=== PATIENT | male | born 1950 | race Caucasian/White ===

== ENCOUNTER → 2017-02-01 | Outpatient (CLI) | payer OTHER ==
[~2017-02-01] MED LIST: BACL10TA PO; CYAN500T PO; DOCU100C31 PO; FENT25DI10 TD; GABA-113 PO; GUAI1TAB75 PO; HYDR1SOL10 PO; LEVO-459 PO; LORA-741 PO; MELA1TAB5 PO; MELA3TAB PO; MIRT30TA2 PO; MIRT30TA3 PO; MORP60TA69 PO; NUTR-977 PO; QUET1TAB30 PO; SENN-63 PO; SERT-234 PO; SERT50TA PO; ativan; oxycodone PO
--- NOTE | 2017-02-01 12:33 | DIAGNOSTIC IMAGING REPORT ---
ULTRASOUND OF THE CAROTID ARTERIES CLINICAL HISTORY: Head and neck cancer. History of radiation treatment. COMPARISON STUDY: CT scan of the neck dated 05/24/2016. TECHNIQUE: Real-time, grayscale, and color Doppler sonography of the carotid arteries is performed. Images are reviewed in the transverse and longitudinal planes. FINDINGS: Blood pressure in the right arm measures 139/74 and blood pressure in the left arm measures 122/75. The carotid arteries are patent bilaterally and demonstrate antegrade flow. There is mild echogenic shadowing atherosclerotic plaque seen bilaterally. Normal doppler arterial waveforms are seen throughout. Velocity measurements are listed below. Common carotid peak systolic velocity (cm/sec): RIGHT: 92 LEFT: 107 ICA proximal peak systolic velocity (cm/sec): RIGHT: 91 LEFT: 84 ICA mid peak systolic velocity (cm/sec): RIGHT: 74 LEFT: 63 ICA distal peak systolic velocity (cm/sec): RIGHT: 67 LEFT: 56 ICA/CC peak systolic ratio: RIGHT: 0.9 LEFT: 0.8 Antegrade flow was shown in the vertebral arteries. The external carotid arteries are patent. IMPRESSION: 1. There is no sonographic evidence of hemodynamically significant stenosis in the right or left carotid arterial system. 2. Antegrade flow is shown in the vertebral arteries. Electronically signed by: Felix Shane M.D. 02/01/2017 12:31 PM Dictated Date/Time: 02/01/2017 12:30 PM
== END | disposition home or self-care (01) ==
LOC: C.ULTR 11:27
PROVIDERS: ATTEND Physician Assistant Medical
DX: C32.0 Malignant neoplasm of glottis (principal); C01 Malignant neoplasm of base of tongue

== ENCOUNTER 2017-02-07 16:37 | Observation (INO) | payer OTHER ==
[~2017-02-07] VITALS: Ht 167.6 cm; Wt 67.1 kg
[~2017-02-07 16:37] MED LIST changes: -FENT25DI10 TD; -HYDR1SOL10 PO; -LEVO-459 PO; -LORA-741 PO; -MELA3TAB PO; -MIRT30TA3 PO; -ativan
[2017-02-07] MEDS ORDERED: ONDANSETRON 8 MG/54 ML D5W IV STA (17:03)
[2017-02-07 17:15] LABS: BASO % 0.5 %; BASO ABS # 0.03 K/uL (0-0.2); COMPLETE YES; EOS % 1.8 %; HEMATOCRIT 42.6 % (42-52); LYMPH % 19.6 %; LYMPH ABS # 1.09 K/uL (1.2-3.4); MEAN CELL VOLUME 85.4 fL (80-100); MEAN CORPUSCULAR HEMOGLOBIN 29.5 pg (25-34); MEAN CORPUSCULAR HGB CONC 34.5 g/dl (32-36); MEAN PLATELET VOLUME 9.1 fL (7.4-10.4); MONO % 7.7 %; NEUT % 70.4 %; PLATELET COUNT 252 K/uL (130-400); RED BLOOD COUNT 4.99 M/uL (4.7-6.1); WHITE BLOOD COUNT 5.57 K/uL (4.8-10.8)
[2017-02-07] MEDS ORDERED: MoRPHine SULFATE 4 MG/ML 1 ML CARP\\VIAL ONE ×2 (17:15→20:10)
[2017-02-07] MEDS: MoRPHine SULFATE 10 MG/ML CARP/VIAL IV PRN ×2 (17:30→20:13)
[2017-02-07 17:33] LABS: ALT/SGPT 19 U/L (12-78); AST/SGOT 19 U/L (15-37); BLOOD UREA NITROGEN 11 mg/dl (7-18); BUN/CREATININE RATIO 9.2 (10-20); CALCIUM 9.5 mg/dl (8.5-10.1); CARBON DIOXIDE 23 mmol/L (21-32); CHLORIDE 108 mmol/L (98-107); GLUCOSE 98 mg/dl (70-99); POTASSIUM 3.9 mmol/L (3.5-5.1); SODIUM 141 mmol/L (136-145)
[2017-02-07 17:35] LABS: ALKALINE PHOSPHATASE 134 U/L (45-117)
[2017-02-07] MEDS ORDERED: MELA3TAB PO (17:44)
[2017-02-07] MEDS ORDERED: MIRT30TA3 PO (17:44)
[2017-02-07] MEDS ORDERED: OPTIRAY 320 IV PRN (21:00)
[2017-02-07] MEDS ORDERED: LORAZEPAM 2 MG/ML 1 ML VIAL IV STA (21:11)
[2017-02-07] MEDS ORDERED: NURSING VERBAL MED ORDER ONE (21:15)
[2017-02-07] MEDS ORDERED: ONDANSETRON INJ 2 MG/ML 2 ML VIAL ONE (21:16)
--- NOTE | 2017-02-07 21:59 | DIAGNOSTIC IMAGING REPORT ---
CT OF THE NECK WITH CONTRAST CT DOSE: 428.15 mGy.cm CLINICAL HISTORY: Dyspnea. Difficulty swallow. TECHNIQUE: Axial images of the neck were obtained following intravenous injection of 115 cc of Optiray 320 IV. COMPARISON STUDY: Neck CT May 24, 2016 and PET/CT December 13, 2016. FINDINGS: Visualization portions of the intracranial contents are unremarkable. There are post surgical findings within the sinuses. There is mild mucosal thickening of the sinuses. There is no CT evidence of acute sinusitis. There is no fluid within the mastoid air cells. No suspicious osseous lesions are present. Moderate to severe emphysema is noted within visualized portions of the lungs. No pneumothorax is present within the lung apices. There are findings consistent with a tracheostomy. Minimal debris is noted within visualized portions of the trachea. A tracheoesophageal prosthesis is in place. This is unchanged in position. There are findings consistent with a laryngectomy. The postoperative appearance is similar to PET/CT of December 13, 2016. No pathologically enlarged cervical lymph nodes are identified. Note is again made of prominent irregular enhancing soft tissue at the level the base of the tongue/lingual tonsils. The tissue within the right aspect of the lingual tonsils measures 1.3 x 0.7 cm while of the irregular tissue at the left tonsils measures 1.2 [address], it is difficult to differentiate tonsillar tissue from malignancy. This is similar to PET/CT of December 13, 2016. No additional mucosal abnormalities are identified on the study. IMPRESSION: 1. Status post laryngectomy and tracheostomy with suspected tracheoesophageal prosthesis in place. Stable postoperative findings since PET/CT of December 13, 2016. 2. Irregular enhancing tissue at the base of the tongue/lingual tonsils, similar to PET/CT of December 13, 2016. This may reflect the biopsy-proven carcinoma but differentiation between tonsillar tissue and malignancy is difficult by CT. 3. No cervical lymphadenopathy. Electronically signed by: Milan Kelly M.D. 02/07/2017 9:58 PM Dictated Date/Time: 02/07/2017 9:39 PM
[2017-02-07] MEDS ORDERED: ONDANSETRON INJ 2 MG/ML 2 ML VIAL IV STA (22:04)
[2017-02-07] MEDS ORDERED: SODIUM CHLORIDE 0.9% 1000ML 1,000 ML IV STA (23:16)
[2017-02-08] VITALS (7 sets, daily range): BP systolic 132–156; BP diastolic 70–82; PULSE 66–90; TEMP 36.5–36.9; O2SAT 93–98; Ht 167.6 cm; Wt 67.1 kg
[2017-02-08] MEDS ORDERED: KETOROLAC TROMETHAMINE 30 MG/ML VIAL IV PRN
[2017-02-08] MEDS ORDERED: LORAZEPAM 2 MG/ML 1 ML VIAL IV PRN
[2017-02-08] MEDS ORDERED: MoRPHine SULFATE 2 MG/ML CARP IV PRN
[2017-02-08] MEDS ORDERED: MoRPHine SULFATE 4 MG/ML 1 ML CARP\\VIAL IV PRN
[2017-02-08] MEDS ORDERED: ACETAMINOPHEN IV 100 ML IV PRN
[2017-02-08] MEDS ORDERED: DiphenhydrAMINE HCL 50 MG/ML VIAL IV PRN (00:15)
[2017-02-08] MEDS ORDERED: IV FLUIDS COMPLETED PRN (00:30)
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
[2017-02-08] MEDS: NSS + 20MEQ KCL 1000ML 1,000 ML IV SCH ×3 (01:29→20:38)
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
[2017-02-08] MEDS ORDERED: NURSING VERBAL MED ORDER ONE (04:30)
[2017-02-08] MEDS: HYDROmorphone INJ 0.5 MG/0.5 ML SYR IV PRN ×5 (04:34→17:56)
[2017-02-08] MEDS ORDERED: ONDANSETRON INJ 2 MG/ML 2 ML VIAL IV PRN (10:15)
[2017-02-08] MEDS: PANTOprazole INJ 40 MG in SYRINGE 0 ML IV SCH (10:30)
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
[2017-02-08] MEDS: LEVOFLOXACIN / D5W 500 MG in PREMIXED IN D5W 100 ML IV SCH (12:37)
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
[2017-02-08] MEDS: BOOST PLUS VANILLA PO SCH ×2 (15:54)
[2017-02-08] MEDS ORDERED: HYDROmorphone INJ 1 MG/ML SYR IV PRN (18:30)
[2017-02-08] MEDS: LORAZEPAM INJ 0.5 MG in SYRINGE 0.75 ML IV PRN (20:37)
[2017-02-08] MEDS: MoRPHine SULFATE CR 60 MG TAB (MS CONTIN) PO SCH (22:35)
[2017-02-08] MEDS: OXYCODONE HCL IR 5 MG TAB (IMMEDIATE RELEASE) PO PRN (23:43)
[2017-02-09 00:18] VITALS: BP 164/76; PULSE 61; TEMP 36.8; O2SAT 96
[2017-02-09 03:59] VITALS: BP 142/78; PULSE 62; TEMP 36.8; O2SAT 97
[2017-02-09] MEDS: OXYCODONE HCL IR 5 MG TAB (IMMEDIATE RELEASE) PO PRN ×3 (04:30→15:10)
[2017-02-09] MEDS: LORAZEPAM INJ 0.5 MG in SYRINGE 0.75 ML IV PRN (04:41)
[2017-02-09] MEDS: NSS + 20MEQ KCL 1000ML 1,000 ML IV SCH (06:13)
[2017-02-09] MEDS: MoRPHine SULFATE CR 60 MG TAB (MS CONTIN) PO SCH ×2 (06:13→13:56)
[2017-02-09 07:52] VITALS: BP 138/69; PULSE 68; TEMP 36.6; O2SAT 96
[2017-02-09] MEDS ORDERED: DOCUSATE SODIUM 100 MG CAP PO SCH (08:00)
[2017-02-09] MEDS ORDERED: SERTRALINE HCL 100 MG TAB PO SCH (08:00)
[2017-02-09] MEDS ORDERED: SERTRALINE HCL 50 MG TAB PO SCH (08:00)
[2017-02-09] MEDS: BOOST PLUS VANILLA PO SCH ×2 (08:00)
[2017-02-09] MEDS ORDERED: SENNA 8.6 MG TAB PO SCH (08:00)
[2017-02-09] MEDS ORDERED: BOOST PLUS VANILLA PO SCH ×2 (08:00)
[2017-02-09] MEDS ORDERED: CYANOCOBALAMIN 500 MCG TAB (VIT B-12) PO SCH (08:00)
[2017-02-09] MEDS ORDERED: MIDAZOLAM HCL 1 MG/ML 2ML VIAL IV ONE (08:33)
[2017-02-09] MEDS ORDERED: FENTANYL CITRATE INJ 50 MCG/1 ML 2 ML VIAL IV ONE (08:33)
[2017-02-09] MEDS ORDERED: ATROPINE SULFATE 0.1 MG/ML 5ML SYR IV PRN (09:30)
[2017-02-09] MEDS ORDERED: EpHEDrine SULFATE INJ 50 MG/ML AMP IV PRN (09:30)
--- NOTE | 2017-02-09 10:05 | Anesthesiology Progress Note ---
Anesthesia Post Op Note Date & Time February 09, 2017 at 10:05 Vital Signs Pain Intensity: 4 Vital Signs Past 12 Hours Date Time Temp Pulse Resp B/P Pulse Ox O2 Delivery O2 Flow Rate FiO2 02/09/17 09:55 69 17 134/80 94 Room Air 02/09/17 09:46 36.3 82 10 143/80 97 Room Air 02/09/17 07:52 36.6 68 18 138/69 96 02/09/17 03:59 36.8 62 20 142/78 97 Trach Collar 02/09/17 00:18 36.8 61 20 164/76 96 Trach Collar 02/09/17 00:00 Trach Collar 7.0 Notes Mental Status: alert / awake / arousable, participated in evaluation Pt Amnestic to Procedure: Yes Nausea / Vomiting: adequately controlled Pain: adequately controlled Airway Patency, RR, SpO2: stable & adequate BP & HR: stable & adequate Hydration State: stable & adequate Anesthetic Complications: no major complications apparent
[2017-02-09 10:15] VITALS: BP 144/78; PULSE 66; TEMP 37; O2SAT 93
[2017-02-09] MEDS: BACLOFEN 10 MG TAB PO SCH ×2 (10:36→15:07)
[2017-02-09] MEDS: GABAPENTIN 300 MG CAP PO SCH ×2 (10:36→15:08)
[2017-02-09] MEDS: LEVOFLOXACIN / D5W 500 MG in PREMIXED IN D5W 100 ML IV SCH (10:39)
[2017-02-09] MEDS: PANTOprazole INJ 40 MG in SYRINGE 0 ML IV SCH (10:40)
[2017-02-09 11:13] VITALS: BP 112/63; PULSE 76; TEMP 36.7; O2SAT 95
[2017-02-09] MEDS ORDERED: LEVO-459 PO (11:36)
--- NOTE | 2017-02-09 11:38 | Discharge Instructions ---
Discharge Instructions Date of Service February 09, 2017. Admission Reason for Admission: Cancer Of Base Of Tongue, Dehydration Discharge Discharge Diagnosis / Problem: Bronchitis Discharge Goals Goal(s): Decrease discomfort, Improve function, Diagnostic testing, Therapeutic intervention, Prevent Disease Progression Activity Recommendations Activity Limitations: resume your previous activity . Instructions / Follow-Up Instructions / Follow-Up New medications: 1. Levaquin 500 mg by mouth once daily until prescription is complete- begin this medication on 02/10 This is an antibiotic used to treat bronchitis (your discolored sputum) Resume all other regular home medications as prescribed to you Please follow-up with your PCP within 5-7 days Please follow-up/keep all of your subspecialty appointments Current Hospital Diet Patient's current hospital diet: Full Liquid Diet Discharge Diet Recommended Diet: Full Liquid Diet Pending Studies Studies pending at discharge: no Laboratory Results Test 02/07/17 17:02 02/08/17 05:44 Range/Units White Blood Count 5.57 4.8-10.8 K/uL Red Blood Count 4.99 4.7-6.1 M/uL Hemoglobin 14.7 14.0-18.0 g/dL Hematocrit 42.6 42-52 % Mean Corpuscular Volume 85.4 80-100 fL Mean Corpuscular Hemoglobin 29.5 25-34 pg Mean Corpuscular Hemoglobin Concent 34.5 32-36 g/dl Platelet Count 252 130-400 K/uL Mean Platelet Volume 9.1 7.4-10.4 fL Neutrophils (%) (Auto) 70.4 % Lymphocytes (%) (Auto) 19.6 % Monocytes (%) (Auto) 7.7 % Eosinophils (%) (Auto) 1.8 % Basophils (%) (Auto) 0.5 % Neutrophils # (Auto) 3.92 1.4-6.5 K/uL Lymphocytes # (Auto) 1.09 1.2-3.4 K/uL Monocytes # (Auto) 0.43 0.11-0.59 K/uL Eosinophils # (Auto) 0.10 0-0.5 K/uL Basophils # (Auto) 0.03 0-0.2 K/uL RDW Standard Deviation 43.0 36.4-46.3 fL RDW Coefficient of Variation 13.8 11.5-14.5 % Immature Granulocyte % (Auto) 0.0 % Immature Granulocyte # (Auto) 0.00 0.00-0.02 K/uL Sodium Level 141 136-145 mmol/L Potassium Level 3.9 3.5-5.1 mmol/L Chloride Level 108 98-107 mmol/L Carbon Dioxide Level 23 21-32 mmol/L Anion Gap 10.0 3-11 mmol/L Blood Urea Nitrogen 11 7-18 mg/dl Creatinine 1.20 0.60-1.40 mg/dl Estimated GFR () 73.6 Estimated GFR (Non- 63.5 BUN/Creatinine Ratio 9.2 10-20 Random Glucose 98 70-99 mg/dl Calcium Level 9.5 8.5-10.1 mg/dl Total Bilirubin 0.6 0.2-1 mg/dl Direct Bilirubin 0.1 0-0.2 mg/dl Aspartate Amino Transf (AST/SGOT) 19 15-37 U/L Alanine Aminotransferase (ALT/SGPT) 19 12-78 U/L Alkaline Phosphatase 134 45-117 U/L Total Protein 8.0 6.4-8.2 gm/dl Albumin 3.9 3.4-5.0 gm/dl Lipase 216 73-393 U/L Hepatitis C Antibody Screen NEG NEG Medical Emergencies . Who to Call and When: Medical Emergencies: If at any time you feel your situation is an emergency, please call 911 immediately. . Non-Emergent Contact Non-Emergency issues call your: Primary Care Provider . . "Provider Documentation" section prepared by Shelley Parry. . VTE Core Measure Inpt VTE Proph given/why not?: SCD's
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
--- NOTE | 2017-02-09 12:07 | DIAGNOSTIC IMAGING REPORT ---
MRI SOFT TISSUES NECK COMBO CLINICAL HISTORY: Fever. Base of tongue cancer. Difficulty swallowing. COMPARISON STUDY: CT scan of the neck dated 02/07/2017. TECHNIQUE: MRI of the soft tissues of the neck is performed utilizing various T1 and T2-weighted sequences in the axial, sagittal, and coronal planes. Contrast-enhanced sequences were acquired following the IV administration of 7 cc of Gadavist. The examination is modestly degraded by motion artifact. FINDINGS: Again seen are changes from laryngectomy and tracheostomy. There is ill-defined soft tissue/nodularity seen at the base of the tongue/lingual tonsils. This is unchanged from previous and likely represents the patient's biopsy-proven carcinoma. This is not well delineated secondary to surrounding posttreatment change. This is best seen on axial postcontrast image #16 of 22. Nodular foci measure up to 1.4 cm. There is nonspecific infiltration of the right parapharyngeal fat. No cervical lymphadenopathy is identified. There is no evidence of fluid collection in the neck. The salivary glands are normal as visualized. The right and left thyroid lobes are normal as visualized. The isthmus appears to be absent. The visualized bony structures appear intact. No destructive bony lesion is seen. Posterior disc osteophyte complexes at C3-C4 at C5-C6 contribute to acquired compromise of the central spinal canal. The partially imaged brain parenchyma at the skull base is within normal limits. Normal flow voids are maintained in the carotid and vertebral arteries. IMPRESSION: 1. Extensive postoperative changes from laryngectomy and tracheostomy are again seen. 2. Nodular enhancing soft tissue is again suggested at the base of the tongue/laryngeal tonsils. This likely represents the patient's biopsy-proven carcinoma. 3. No cervical adenopathy is identified. 4. No organized fluid collection is identified. 5. Infiltration of the right parapharyngeal fat is again noted and likely represents treatment related change. 6. These findings were better characterized on the 02/07/2017 CT scan. Dictated: 02/09/2017 10:14 AM Transcribed: 02/09/2017 12:07 PM Lazaro Electronically signed by: Felix Shane M.D. 02/09/2017 12:12 PM Dictated Date/Time: 02/09/2017 10:14 AM
[2017-02-09 14:58] VITALS: BP 112/63; PULSE 76; TEMP 36.7; O2SAT 95
[2017-02-09] MEDS ORDERED: GUAIFENESIN 600 MG TABCR PO SCH (21:00)
[2017-02-09] MEDS ORDERED: MIRTAZAPINE TAB 15 MG TAB PO SCH (21:00)
[2017-02-09] MEDS ORDERED: NON-FORMULARY MEDICATION (Melatonin 3 MG) PO SCH (21:00)
[2017-02-09] MEDS ORDERED: QUETIAPINE FUMARATE 25 MG TAB PO SCH (21:00)
[2017-02-10] MEDS ORDERED: LEVOFLOXACIN 500 MG TAB PO SCH (11:00)
[2017-03-07] MEDS ORDERED: ativan (15:52)
[2017-03-24] MEDS ORDERED: HYDR1SOL10 PO (14:14)
[2017-03-24] MEDS ORDERED: FENT25DI10 TD (14:14)
[2017-03-24] MEDS ORDERED: LORA-741 PO (14:16)
== END 2017-02-09 15:30 | disposition home or self-care (01) ==
LOC: ENRESERVTM → ENRESERVDT → C.EDB 16:38 → C.4E 02-08 00:01
PROVIDERS: ADMIT Hospitalist; ATTEND Internal Medicine
DX: R13.10 Dysphagia, unspecified (principal); Z85.810 Personal history of malignant neoplasm of tongue; E86.0 Dehydration; Z93.0 Tracheostomy status; Z87.891 Personal history of nicotine dependence; J44.9 Chronic obstructive pulmonary disease, unspecified; F41.9 Anxiety disorder, unspecified; F32.9 Major depressive disorder, single episode, unspecified; J40 Bronchitis, not specified as acute or chronic

== ENCOUNTER 2017-02-22 10:12 | Emergency (ER) | payer OTHER ==
[~2017-02-22] VITALS: Ht 167.6 cm; Wt 70.4 kg
[~2017-02-22 10:12] MED LIST changes: +LEVO-459 PO; -MELA1TAB5 PO; +MELA3TAB PO; -MIRT30TA2 PO; +MIRT30TA3 PO
[2017-02-22 10:16] VITALS: TEMP 36.7
--- NOTE | 2017-02-22 11:36 | EMERGENCY ROOM VISIT NOTE ---
History Report prepared by Gerald: Miriam Castillo Under the Supervision of: Dr. Aliyah Briseno M.D. First contact with patient: 11:31 Chief Complaint: FEEDING TUBE PROBLEM Stated Complaint: FEEDING TUBE FELL OUT History of Present Illness The patient is a 66 year old male who presents to the Emergency Room with complaints of constant complications of feeding tube beginning at 8am this morning. Per the patient's , the patient went to the bathroom this morning and his peg tube fell out. Site of the peg tube is the epigastric region of abdomen. The tube was unable to be put back in due to being too painful for the patient to tolerate. The peg tube was put in at [facility] last week. The patient notes that he can still eat solids. He denies any other symptoms at this time. Source of History: spouse/significant other Onset: 8am today Position: abdomen (epigastric) Quality: other (feeding tube) Timing: constant Note: The patient has no other symptoms at this time. Review of Systems See HPI for pertinent positives & negatives. A total of 10 systems reviewed and were otherwise negative. Past Medical & Surgical Medical Problems: (1) Alcohol Abuse-In Remiss (2) Dehydration (3) Depressive Disorder Nec (4) Tobacco Use Disorder Surgical Problems: (1) History of tracheostomy Family History No significant family history Social History Smoking Status: Former Smoker Alcohol Use: none Drug Use: none Marital Status: Housing Status: lives with significant other Occupation Status: retired Current/Historical Medications Scheduled Baclofen (Lioresal), 10 MG PO TID Cyanocobalamin (Vitamin B-12), 500 MCG PO DAILY Docusate Sodium (Docusate Sodium), 100 MG PO BID Enteral Nutrition Formula (Ensure Plus Vanilla), 1 CAN PO BID Gabapentin (Neurontin), 300 MG PO TID Melatonin (Melatonin), 3 MG PO HS Mirtazapine (Remeron), 45 MG PO HS Morphine Sulfate (Ms Contin), 60 MG PO Q8 Quetiapine Fumarate (Seroquel), 75 MG PO HS Sennosides (Senokot), 8.6 MG PO DAILY Sertraline (Zoloft), 50 MG PO DAILY Sertraline (Zoloft), 100 MG PO DAILY Scheduled PRN [oxycodone], 22.5 MG PO Q4H PRN for Pain Allergies Coded Allergies: Flu Virus Vaccine (Verified Allergy, Unknown, 0, 02/22/17) unknown Physical Exam Vital Signs Date Time Temp Pulse Resp B/P Pulse Ox O2 Delivery O2 Flow Rate FiO2 02/22/17 18:59 70 18 120/55 96 Room Air 02/22/17 18:12 64 127/64 89 02/22/17 17:57 68 13 95 02/22/17 17:45 64 02/22/17 17:42 83 15 84 02/22/17 17:27 75 15 02/22/17 16:58 98 2.0 02/22/17 16:55 69 18 147/71 88 Room Air 02/22/17 16:55 147/71 02/22/17 16:31 68 16 141/80 91 Room Air 02/22/17 14:00 76 18 105/53 97 02/22/17 12:33 89 18 109/63 94 Room Air 02/22/17 10:16 36.7 67 20 116/71 91 Room Air Physical Exam Vital signs reviewed. General: Chronically ill appearing male, in no significant distress. HEENT: No scleral icterus, PERRLA, neck supple. Atraumatic. Tracheostomy. Cardiovascular: Regular rate and rhythm, no extra sounds. Pulmonary: Clear to auscultation bilaterally, normal work of breathing. Abdomen: Well healing incision to epigastric region with small wound consistent with peg tube site, unable to pass the peg tube. Abdomen mildly tender. No acute peritoneal signs. Musculoskeletal: Atraumatic, no peripheral edema. Neurologic: Patient awake alert and oriented x 3, full strength in all 4 extremities. Cranial nerves 2 through 12 grossly intact. Skin: Warm, dry, no rash Medical Decision & Procedures Medications Administered Medications (Trade) Dose Ordered Sig/Joaquim Route Start Time Stop Time Status Last Admin Dose Admin Morphine Sulfate (Ms Contin Tab) 60 mg NOW STAT PO 02/22/17 12:15 02/22/17 12:17 DC 02/22/17 13:01 60 MG Oxycodone HCl (Roxicodone Immediate Rel Tab) 20 mg NOW STAT PO 02/22/17 12:55 02/22/17 12:56 DC 02/22/17 13:05 20 MG Oxycodone HCl (Roxicodone Immediate Rel Tab) 10 mg NOW STAT PO 02/22/17 17:14 02/22/17 17:15 DC 02/22/17 17:19 10 MG ED Course 1132: Past medical records reviewed. The patient was evaluated in room C3. A complete history and physical examination was performed. 1158: I spoke with DOROTA Cabezas [facility] General Surgery about the patient. She would like the patient to be transferred to [facility]. 1215: The patient is requesting pain medication. Ordered Ms Contin Tab 60 mg PO. 1255: Roxicodone Immediate Rel Tab 20 mg PO. 1442: The patient is being transferred to [facility] via EMS at this time. Medical Decision The patient is a 66 year old male who presents to the ED with complaints of feeding tube out of place. This patient was evaluated and appeared to be in no significant distress. The patient is mildly tender to palpation of the abdomen however he is recovering from laparotomy. An attempt to replace the feeding tube was made but unsuccessful. I did contact the patient's general surgeon at the [facility] in [place]. They have suggested transport to their facility for potential interventional radiology versus endoscopic replacement of the PEG tube. Transportation arrangements have been made. Patient was given a dose of oral MS Contin and OxyIR per his usual pain medication regimen. Patient will return to the ER for worsening of symptoms or any medical concerns. Consults Time Called: 1156 Consulting Physician: DOROTA Cabezas [facility] General Surgery Returned Call: 1158 I spoke with DOROTA Cabezas [facility] General Surgery about the patient. She would like the patient to be transferred to [facility]. Impression Primary Impression: Complication of feeding tube Scribe Attestation The scribe's documentation has been prepared under my direction and personally reviewed by me in its entirety. I confirm that the note above accurately reflects all work, treatment, procedures, and medical decision making performed by me. Departure Information Dispostion Transfer Acute Care Facility Referrals No Doctor, Assigned (PCP)
[2017-02-22] MEDS ORDERED: MoRPHine SULFATE CR 60 MG TAB (MS CONTIN) PO STA (12:15)
[2017-02-22] MEDS ORDERED: OXYCODONE HCL IR 5 MG TAB (IMMEDIATE RELEASE) PO STA ×2 (12:55→17:14)
[2017-02-22 13:58] VITALS: Ht 167.6 cm; Wt 70.4 kg
[2017-02-22 18:59] VITALS: BP 120/55; PULSE 70; O2SAT 96
--- NOTE | 2017-02-22 22:21 | EMERGENCY ROOM VISIT NOTE ---
ED Visit Note This patient was signed out to me by Dr. Briseno. We were waiting to transport this patient back to [place] for his provider there. He did require additional by mouth pain medication for his chronic pain he's remained cooperative. He did go by wheelchair van and will be seen by his surgeon for feeding tube replacement.
[2017-03-07] MEDS ORDERED: ativan (15:52)
[2017-03-24] MEDS ORDERED: FENT25DI10 TD (14:14)
[2017-03-24] MEDS ORDERED: HYDR1SOL10 PO (14:14)
[2017-03-24] MEDS ORDERED: LORA-741 PO (14:16)
== END 2017-02-22 19:49 | disposition short-term general hospital (02) ==
LOC: C.EDB 10:14 → C.EDC 19:49
DX: K94.20 Gastrostomy complication, unspecified (principal); F32.9 Major depressive disorder, single episode, unspecified; F17.200 Nicotine dependence, unspecified, uncomplicated; Z93.0 Tracheostomy status; Z87.891 Personal history of nicotine dependence; Z79.899 Other long term (current) drug therapy; Z88.8 Allergy status to other drugs, medicaments and biological substances

== ENCOUNTER → 2017-05-18 | Outpatient (CLI) | payer OTHER ==
[~2017-05-18] MED LIST changes: +FENT25DI10 TD; -GUAI1TAB75 PO; +HYDR1SOL10 PO; -LEVO-459 PO; +LORA-741 PO; -SERT50TA PO
[2017-05-18 14:55] VITALS: BP 91/65; PULSE 72; TEMP 36.7; O2SAT 90
--- NOTE | 2017-05-18 15:48 | Radiation Oncology Follow-Up ---
Radiation Oncology Follow-Up Date of Visit May 18, 2017. 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 He received 6996 cGy Last Edited By: Fiorella Chau on Apr 27, 2017 11:05 History of Present Illness Mr. 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 The patient was seen and examined in the head and neck clinic in the [facility] and the final recommendation was for radiation therapy alone. We are now seeing the patient in consultation discuss the role of radiation therapy. Today, I did have the opportunity to review the patient's case at our multidisciplinary tumor board. The final recommendation from the group which included both radiation oncology and medical oncology was to reconsider the general recommendation of radiation therapy alone. In order to better assess the extent of disease, I will order an MRI of the neck. Additionally, the patient will see Dr. Valentin Lee for medical oncology to discuss the potential role of chemotherapy. In general, we did review the NCCN guidelines for the management of head and neck cancer. I did explain to the patient that if the MRI of the neck supports that he does have early stage oropharyngeal cancer (as well as opinion of medical oncology), then we can proceed with radiation therapy alone. If there is concern that the patient may have more locally advanced disease, then I will recommend consideration for both chemotherapy and radiation therapy for treatment. The patient is willing to be considered for both treatment options based on recommendations from both radiation oncology and medical oncology. In the interim, the patient will be brought back for CT simulation for treatment planning since he will require that either way. We have already made him an appointment for a medical oncology referral and we are in the process of scheduling him for an MRI of the neck. The patient is edentulous so he does not require dental evaluation. We will order a TSH and bilateral carotid Doppler ultrasounds. The patient is already scheduled to have a PEG placed by [facility]. We have explained the indications, alternatives, benefits, risks and side effects of radiation therapy for head/neck cancer. We have explained the most common side effects including but are not limited to skin erythema, skin break down, hair loss, fibrosis, adhesion development, heart failure and heart disease , esophagitis, bowel obstruction, urinary symptoms, thyroid disorders, mucositis , nauesea, vomiting, diarrhea, anemia, fatigue and development of secondary malignancy. Additionally, patients suffer may have xerostomia, stomatitis, glossitis, dysphagia, aspiration, mandibular osteoradionecrosis, mucocutaneous fistula formation, lymphedema in the neck, pharyngeal edema, mucositis, loss of taste. We have explained the CT simulation process and treatment planning. We explained what to expect before, during and after treatment on a regular basis. The patient understands and would be willing to consent to treatment. He completed radiation therapy 04/18/2017. He received 6996 cGy. Interim History He's been doing well of this past month. The discomfort that he feels in the throat and with swallowing has improved. He does continue to give this a pain level of 5. Pain medications are supplied through the [facility]. He has oxycodone and morphine. He is steadily increasing his diet. He is eating some soft foods. Especially is eating soups, Jell-O and pudding. He is using 3 cartons of nutrition per day. This is supplied through the [facility]. He also uses 3 bottles of in sure per day via the feeding tube. He'll be seeing his ENT surgeon at the end of the month at the [facility]. He is steadily gaining weight. He had a weight gain of 2 pounds. Allergies Coded Allergies: Flu Virus Vaccine (Verified Allergy, Unknown, 0, 02/22/17) unknown Home Medications Scheduled Baclofen (Lioresal), 10 MG PO TID Cyanocobalamin (Vitamin B-12), 500 MCG PO DAILY Docusate Sodium (Docusate Sodium), 100 MG PO BID Enteral Nutrition Formula (Ensure Plus Vanilla), 1 CAN PO TIDM Gabapentin (Neurontin), 300 MG PO TID Melatonin (Melatonin), 3 MG PO HS Mirtazapine (Remeron), 45 MG PO HS Morphine Sulfate (Ms Contin), 100 MG PO Q8 Quetiapine Fumarate (Seroquel), 75 MG PO HS Sennosides (Senokot), 8.6 MG PO DAILY Sertraline (Zoloft), 200 MG PO DAILY Scheduled PRN Hydrocodone-Acetaminophen (Hydrocodone/Acetami 7.5/325MG 15ML), 15 ML PO Q6H PRN [oxycodone], 22.5 MG PO Q4H PRN for Pain Review of Systems Gastrointestinal: Symptoms: Nausea GI Comments: " altered taste " Oral: Symptoms: Can Only Take Liquids, Thick/Viscid/Mucid Saliva Other Oral Symptoms: sore throat , " is able to swallow his pills " Respiratory: Symptoms: WNL Other Respiratory: has a trach Urinary: Symptoms: Burning, Nocturia Comments: burning on urination , nocturia times 1 - 2 Skin: Symptoms: No Problems Physical Exam Vital Signs Date Time Temp Pulse Resp B/P (MAP) Pulse Ox O2 Delivery O2 Flow Rate FiO2 05/18/17 14:55 36.7 72 16 91/65 90 Pain: Pain Onset: "since the start of radiation " Pain Duration: constant Side: Bilateral Patient Pain Scale: 0 - 10 Initial Pain Intensity: 5.0 Pain Description: Aching Fatigue: None General Appearance: no apparent distress Eyes: normal inspection, EOMI ENT: hearing grossly normal, pharynx normal (no mucositis), + pertinent finding (clean open stoma of the neck.) Neck: no adenopathy, thyroid normal Respiratory/Chest: lungs clear, no respiratory distress, no accessory muscle use Cardiovascular: regular rate, rhythm, no gallop, no murmur Extremities: no pedal edema Neurologic/Psychiatric: no motor/sensory deficits, alert, normal mood/affect Skin: warm/dry Lymphatic: no adenopathy Laboratory Studies Test 04/10/17 04:45 Urine Color YELLOW Urine Appearance CLEAR (CLEAR) Urine pH 7.0 (4.5-7.5) Urine Specific [place] 1.025 (1.000-1.030) Urine Protein NEG (NEG) Urine Glucose (UA) NEG (NEG) Urine Ketones NEG (NEG) Urine Occult Blood NEG (NEG) Urine Nitrite NEG (NEG) Urine Bilirubin NEG (NEG) Urine Urobilinogen NEG (NEG) Urine Leukocyte Esterase NEG (NEG) Assessment & Plan Plan: Patient was also seen and examined by Dr. Cortez. He declined NPL examination today. He was in a hurry to greens picker his who is at another appointment. [facility]. Continue on his current regimen of nutrition. He should try to steadily increase his oral intake. We asked him to return to our office in 3 months. He may call if he has the questions or concerns in the interim. Today we completed a cancer survivorship care plan. A copy of the document was given to the patient. ADDENDUM: I agree with note created by Fiorella Chau PA-C. I reviewed the patient's chart and information with her. Total Time In Follow-Up I spent 20 minutes speaking to the patient and performing examination. I spent 20 minutes reviewing information, preparing the survivorship document, and completing this note. I spent 15 minutes examining and counseling the patient. [employer]AND [employer]NER Copy To Willa Richardson M.D.; Merna Candelario ., WENDY
== END | disposition home or self-care (01) ==
LOC: C.ONC 14:33
PROVIDERS: ATTEND Physician Assistant Medical
DX: Z08 Encounter for follow-up examination after completed treatment for malignant neoplasm (principal); Z92.3 Personal history of irradiation; Z85.810 Personal history of malignant neoplasm of tongue

== ENCOUNTER 2021-03-17 15:41 | Inpatient (IN) ==
--- NOTE | 2021-03-17 16:37 | Emergency Department Note ---
History of Present Illness General Chief complaint: Throat Pain Stated complaint: CANNOT SWALLOW,WEIGHT LOSS Time Seen by Provider: 03/17/21 16:19 Source: family Mode of arrival: ambulatory Limitations: physical limitation History of Present Illness Provider complaint: "he needs a G tube" Onset (ago): month(s) 2 Maximum Pain Intensity: 5 Relieved By: + none Exacerbated By: + none Associated symptoms: + denies other symptoms Treatments prior to arrival: none This is a 70-year-old male who presents emergency department [facility]. Patient was recently diagnosed with recurrent laryngeal cancer through the [facility] [place]. He has had decreased oral intake and increased dysphagia over the last 2 months. Patient states he has difficulty swallowing primarily from pain. Patient already has a tracheostomy and does wear oxygen at home. They did try a mechanical soft and then liquid diet which she still has difficulty with. Rl merritt has previously had a G-tube that was placed here. On review of EMR this was placed by GI, Dr. Tricia Lee. 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 Patient had no other acute complaints at this time. Pt is on multiple chronic medications including those for pain. Pt seen during a time of high acuity and national emergency pandemic while wearing PPE. Home Medications Medication Instructions Recorded Confirmed Type baclofen 5 mg PO TID PRN 06/17/19 03/17/21 History cyanocobalamin (vitamin B-12) 500 mcg PO QAM 06/17/19 03/17/21 History docusate sodium 100 mg PO BID 06/17/19 03/17/21 History gabapentin 300 mg PO TID 06/17/19 03/17/21 History melatonin 3 mg PO HS PRN 06/17/19 03/17/21 History mirtazapine 45 mg PO QPM 06/17/19 03/17/21 History morphine [MS Contin] 60 mg PO Q6 06/17/19 03/17/21 History oxycodone 15 mg PO .EVERY 3 HOURS PRN 06/17/19 03/17/21 History sennosides 8.6 mg PO BID 06/17/19 03/17/21 History sertraline 200 mg PO QAM 06/17/19 03/17/21 History phenylephrine HCl 0.25 % rectal 1 supp OK HS ea 07/19/19 03/17/21 History suppository quetiapine 300 mg tablet 300 mg PO HS tab 07/19/19 03/17/21 History ciprofloxacin-dexamethasone 4 drp OTR BID 03/17/21 03/17/21 History famotidine 20 mg PO BID PRN 03/17/21 03/17/21 History hydroxyzine HCl 10 mg PO BID PRN 03/17/21 03/17/21 History naloxone 4 mg INTRANASAL DAILY PRN 03/17/21 03/17/21 History ondansetron HCl 8 mg PO Q12 03/17/21 03/17/21 History Allergies Allergy/AdvReac Type Severity Reaction Status Date / Time Flu Virus Vaccine Allergy Severe "almost Uncoded 03/17/21 18:15 killed me" Past Med/Surg History Medical History Anxiety BPH (benign prostatic hyperplasia) Cancer of base of tongue (01/04/17) "PET positive area left base of tongue Status post biopsy 01/04/2017 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 History of tonsillectomy and adenoidectomy History of tooth extraction all teeth removed History of tracheostomy no cuff, not sure of size--had since 2014 @ [facility] Status post myringotomy with tube placement of both ears Family History Father Family history of esophageal cancer Other Asthma No family history of adverse response to anesthesia Social History Smoking Status: Former smoker Second Hand Exposure: Yes ( smokes); Hx Alcohol Use: No Hx Substance Use: No Preferred Language: Chinese Communication Ability: Effective Color Control Supervisor Required: No Beliefs That Will Affect Care: None Current Living Situation: Spouse Feels Safe at Home: Yes Assistive Devices: Glasses and Oxygen - at Night Review of Systems See HPI for pertinent positives & negatives. and A total of 10 systems reviewed and were otherwise negative Physical Exam Vital Signs Vital Signs - 24 hr 03/17/21 15:46 03/17/21 16:00 03/17/21 16:02 Temperature 37.6 C H Temperature Source Oral Pulse Rate 111 H 105 H 105 H Pulse Rate from SpO2 Sensor 106 H 105 H Pulse Rhythm Regular Pulse Strength Normal Respiratory Rate 24 20 15 Respiratory Effort / Characteristics Non-Labored Spontaneous Respiratory Depth Normal Blood Pressure 147/76 H 141/79 H Blood Pressure Mean 99 99 Blood Pressure Position Sitting Pulse Oximetry 71 L 90 91 Oxygen Delivery Method Room Air Trach Collar Trach Collar Oxygen Flow Rate 9 9 Sepsis Recent Fever Within 48 Hours No Sepsis New/Unexplained Change in Mental Status No Sepsis Action Taken by Nursing No Action Required 03/17/21 16:30 03/17/21 17:00 03/17/21 17:30 Temperature Temperature Source Pulse Rate 101 H 94 H 98 H Pulse Rate from SpO2 Sensor 101 H 96 H 99 H Pulse Rhythm Pulse Strength Respiratory Rate 19 16 19 Respiratory Effort / Characteristics Respiratory Depth Blood Pressure 141/80 H 155/94 H Blood Pressure Mean 100 114 Blood Pressure Position Pulse Oximetry 91 92 94 Oxygen Delivery Method Trach Collar Trach Collar Trach Collar Oxygen Flow Rate 9 9 Sepsis Recent Fever Within 48 Hours Sepsis New/Unexplained Change in Mental Status Sepsis Action Taken by Nursing 03/17/21 18:00 03/17/21 18:30 03/17/21 19:00 Temperature Temperature Source Pulse Rate 101 H 97 H 94 H Pulse Rate from SpO2 Sensor 101 H 99 H 93 H Pulse Rhythm Pulse Strength Respiratory Rate 22 19 17 Respiratory Effort / Characteristics Respiratory Depth Blood Pressure 175/89 H 161/91 H 165/90 H Blood Pressure Mean 117 114 115 Blood Pressure Position Pulse Oximetry 93 90 92 Oxygen Delivery Method Trach Collar Trach Collar Trach Collar Oxygen Flow Rate 9 9 9 Sepsis Recent Fever Within 48 Hours Sepsis New/Unexplained Change in Mental Status Sepsis Action Taken by Nursing 03/17/21 19:30 03/17/21 20:00 Temperature Temperature Source Pulse Rate 93 H 94 H Pulse Rate from SpO2 Sensor 93 H 95 H Pulse Rhythm Pulse Strength Respiratory Rate 17 17 Respiratory Effort / Characteristics Respiratory Depth Blood Pressure 151/110 H 170/130 H Blood Pressure Mean 123 143 Blood Pressure Position Pulse Oximetry 92 93 Oxygen Delivery Method Trach Collar Trach Collar Oxygen Flow Rate 9 9 Sepsis Recent Fever Within 48 Hours Sepsis New/Unexplained Change in Mental Status Sepsis Action Taken by Nursing GENERAL: alert, well appearing, well nourished, no distress, non-toxic EYE EXAM: normal conjunctiva, PERRL and EOM's grossly intact NECK: supple, no nuchal rigidity, no adenopathy, non-tender, tracheostomy, stoma well appearing LUNGS: Clear to auscultation. Normal chest wall mechanics, no w/r/r HEART: no murmurs, S1 normal and S2 normal ABDOMEN: abdomen soft, non-tender, normo-active bowel sounds, no masses, no yao ound or guarding. Prior well healed surgical scars noted. BACK: Back is symmetrical on inspection and there is no deformity, no midline tenderness, no CVA tenderness. SKIN: no rashes and no bruising UPPER EXTREMITIES: upper extremities are grossly normal. FROM, nml pulses b/l. LOWER EXTREMITIES: No pitting edema. FROM, nml pulses b/l. NEURO EXAM: Normal sensorium, cranial nerves II-XII grossly intact, normal speech, no gross weakness of arms, no gross weakness of legs. Gross sensation intact. Course Course 1644: Discussed with GI, Dr. Tricia Lee. States patient should have basic labs, Covid swab, and be kept n.p.o. after night. Patient should be admitted to hospitalist service and he will plan to take the patient for a G-tube in the morning. 1730: Discussed with Dr. Sebastian. Administered Medications Heparin Sodium (Porcine) (Heparin Sod 5,000 Unit/0.5 Ml Vial) 5,000 units SQ Q12 SIMONE Stop: 04/16/21 22:59 Last Admin: 03/18/21 00:01 Dose: Not Given Documented by: [id number] Sodium Chloride (Nss 1000ml) 1,000 mls @ 125 mls/hr IV .Q8H SIMONE Stop: 04/16/21 17:14 Last Admin: 03/18/21 00:01 Dose: 125 mls/hr Documented by: [id number] Infusion: 03/18/21 00:01 Dose: 125 mls/hr Documented by: [id number] Admin: 03/17/21 18:13 Dose: 125 mls/hr Documented by: [id number] Morphine Sulfate (Morphine Sulfate 4 Mg/Ml 1 Ml Carp\\Vial) 4 mg IV Q1H PRN PRN Reason: Pain Stop: 03/31/21 20:03 Last Admin: 03/17/21 23:03 Dose: 4 mg Documented by: [id number] Discontinued Medications Lorazepam (Ativan) 2 mg in 4 mls @ 4 mls/min IV NOW STA Stop: 03/17/21 23:45 Last Admin: 03/18/21 00:00 Dose: 4 mls/min Documented by: [id number] Morphine Sulfate (Morphine Sulfate 10 Mg/Ml Carp/Vial) 6 mg IV NOW STA Stop: 03/17/21 19:39 Last Admin: 03/17/21 20:09 Dose: 6 mg Documented by: [id number] Medical Decision Making Differential Diagnosis Tumor, stricture, infection, aneurysm, thyromegaly, obstruction of tracheostomy, esophageal food impaction, GERD, as well as others were considered. Medical Records Attestation: I reviewed the patient's medical records. Home Medications Current Medication List: was personally reviewed by me Laboratory Data Attestation: I reviewed the patient's lab results. Result diagrams: 03/17/21 17:30 03/17/21 17:30 Lab Results 03/17/21 03/17/21 03/17/21 Range/Units 17:30 17:30 17:30 WBC 11.67 H (4.8-10.8) K/uL RBC 4.91 (4.7-6.1) M/uL Hgb 13.4 L (14.0-18.0) g/dL Hct 40.5 L (42-52) % MCV 82.5 (80-100) fL MCH 27.3 (25-34) pg MCHC 33.1 (32-36) g/dL RDW Std Deviation 46.2 (36.4-46.3) fL RDW Coeff of [place] 15.2 H (11.5-14.5) % Plt Count 224 (130-400) K/uL MPV 9.1 (7.4-10.4) fL Immature Gran % (Auto) 0.3 % Neut % (Auto) 82.2 % Lymph % (Auto) 5.5 % [place] % (Auto) 11.9 % Eos % (Auto) 0.0 % Baso % (Auto) 0.1 % Neut # (Auto) 9.60 H (1.4-6.5) K/uL Lymph # (Auto) 0.64 L (1.2-3.4) K/uL [place] # (Auto) 1.39 H (0.11-0.59) K/uL Eos # (Auto) 0.00 (0-0.5) K/uL Baso # (Auto) 0.01 (0-0.2) K/uL Immature Gran # (Auto) 0.03 H (0.00-0.02) K/uL PT 10.8 (9.0-12.0) Seconds INR 1.1 (0.9-1.1) Sodium 137 (136-145) mmol/L Potassium 4.2 (3.5-5.1) mmol/L Chloride 104 (98-107) mmol/L Carbon Dioxide 26 (21-32) mmol/L Anion Gap 7.0 (3-11) BUN 23 H (7-18) mg/dl Creatinine 1.44 H (0.6-1.4) mg/dl Est Cr Clr Drug Dosing 44.3 ml/min Est GFR ( Amer) 57.4 ml/min Est GFR (Non-Af Amer) 49.5 ml/min BUN/Creatinine Ratio 15.7 (10-20) Glucose 101 H (70-99) mg/dl Calcium 8.3 L (8.5-10.1) mg/dl Total Bilirubin 0.6 (0.2-1) mg/dl AST 18 (15-37) U/L ALT 17 (12-78) U/L Alkaline Phosphatase 97 (45-117) U/L Total Protein 7.4 (6.4-8.2) gm/dl Albumin 3.5 (3.4-5.0) gm/dl Globulin 3.9 (2.5-4.0) gm/dl Albumin/Globulin Ratio 0.9 (0.9-2) COVID-19 Eval Order SARS-CoV-2 (PCR) (Negative) 03/17/21 03/17/21 Range/Units 17:40 17:40 WBC (4.8-10.8) K/uL RBC (4.7-6.1) M/uL Hgb (14.0-18.0) g/dL Hct (42-52) % MCV (80-100) fL MCH (25-34) pg MCHC (32-36) g/dL RDW Std Deviation (36.4-46.3) fL RDW Coeff of [place] (11.5-14.5) % Plt Count (130-400) K/uL MPV (7.4-10.4) fL Immature Gran % (Auto) % Neut % (Auto) % Lymph % (Auto) % [place] % (Auto) % Eos % (Auto) % Baso % (Auto) % Neut # (Auto) (1.4-6.5) K/uL Lymph # (Auto) (1.2-3.4) K/uL [place] # (Auto) (0.11-0.59) K/uL Eos # (Auto) (0-0.5) K/uL Baso # (Auto) (0-0.2) K/uL Immature Gran # (Auto) (0.00-0.02) K/uL PT (9.0-12.0) Seconds INR (0.9-1.1) Sodium (136-145) mmol/L Potassium (3.5-5.1) mmol/L Chloride (98-107) mmol/L Carbon Dioxide (21-32) mmol/L Anion Gap (3-11) BUN (7-18) mg/dl Creatinine (0.6-1.4) mg/dl Est Cr Clr Drug Dosing ml/min Est GFR ( Amer) ml/min Est GFR (Non-Af Amer) ml/min BUN/Creatinine Ratio (10-20) Glucose (70-99) mg/dl Calcium (8.5-10.1) mg/dl Total Bilirubin (0.2-1) mg/dl AST (15-37) U/L ALT (12-78) U/L Alkaline Phosphatase (45-117) U/L Total Protein (6.4-8.2) gm/dl Albumin (3.4-5.0) gm/dl Globulin (2.5-4.0) gm/dl Albumin/Globulin Ratio (0.9-2) COVID-19 Eval Order Covid19 at [facility] SARS-CoV-2 (PCR) NEGATIVE (Negative) Imaging Data Radiologist's Impression: Chest X-Ray 03/17/21 17:03 XR chest 1V portable HISTORY: 70 years-old Male pre op preoperative exam. COMPARISON: Chest CT 05/15/2019, chest radiograph 05/24/2016 TECHNIQUE: Portable upright AP view of the chest FINDINGS: Limited exam secondary to obscuration of the lung apices secondary to the patient's chin. Cardiac silhouette is enlarged. Emphysema with chronic inters titial coarsening. Linear left lung base opacities suggestive of atelectasis/scarring. Right greater than left bibasilar opacities. 6 no new nodular density of the right upper lung. Degenerative changes of the shoulders and spine with right shoulder rotator cuff calcific tendinosis. IMPRESSION: 1. Emphysema with chronic interstitial coarsening. 2. Right greater than left bibasilar opacities suggestive of atelectasis versus pneumonitis. 3. Possible 6 mm pulmonary nodule of the right upper lung. 4. Cardiomegaly. ACT 112: Negative or not required by law. The above report was generated using voice recognition software. It may contain grammatical, syntax or spelling errors. Electronically signed by: Johny Bell M.D. 03/17/2021 5:48 PM MDM Narrative Patient here primarily for placement of a G-tube due to ongoing dysphagia secondary to laryngeal cancer. Case discussed with GURJIT Armendariz, who had previously placed a G-tube and the patient and was happy to participate in his care again. Case discussed with the hospitalist in addition. General/preop labs drawn and sent, chest x-ray performed, EKG performed, and Covid testing performed. These were all reassuring. Patient remained hemodynamically stable in the emergency department awaiting a room. Impression & Plan Dysphagia, Dehydration, Throat pain Discharge Plan Visit Data Chief Complaint: Throat Pain Stated Complaint: CANNOT SWALLOW,WEIGHT LOSS ED Provider: Luh Gaytan Discharge Problem: Dysphagia, Dehydration, Throat pain Patient Disposition: Admitted As Inpatient Discharge Instructions Interventions: ED Discharge Assessment Last Done: 03/17/21 21:57 Discharge Problem: Dysphagia Qualifiers: Dysphagia type: unspecified Qualified Code(s): R13.10 - Dysphagia, unspecified
[2021-03-17 17:43] LABS: Basophils # (auto) 0.01 K/uL (0-0.2); Basophils % (auto) 0.1 %; Hematocrit (blood only) 40.5 % (42-52); Hemoglobin 13.4 g/dL (14.0-18.0); Immature Granulocytes # (auto) 0.03 K/uL (0.00-0.02); Immature Granulocytes % (auto) 0.3 %; Lymphocytes # (auto) 0.64 K/uL (1.2-3.4); Lymphocytes % (auto) 5.5 %; Mean Corpuscular Hemoglobin 27.3 pg (25-34); Mean Corpuscular Hgb Conc 33.1 g/dL (32-36); Mean Corpuscular Volume 82.5 fL (80-100); Mean Platelet Volume 9.1 fL (7.4-10.4); Monocytes # (auto) 1.39 K/uL (0.11-0.59); Monocytes % (auto) 11.9 %; Neutrophils % (auto) 82.2 %; Platelet Count 224 K/uL (130-400); RDW Coefficient of Variation 15.2 % (11.5-14.5); RDW Standard Deviation 46.2 fL (36.4-46.3); Red Blood Count 4.91 M/uL (4.7-6.1); White Blood Count 11.67 K/uL (4.8-10.8)
--- NOTE | 2021-03-17 17:50 | XRay Report ---
XR chest 1V portable HISTORY: 70 years-old Male pre op preoperative exam. COMPARISON: Chest CT 05/15/2019, chest radiograph 05/24/2016 TECHNIQUE: Portable upright AP view of the chest FINDINGS: Limited exam secondary to obscuration of the lung apices secondary to the patient's chin. Cardiac luther houette is enlarged. Emphysema with chronic interstitial coarsening. Linear left lung base opacities suggestive of atelectasis/scarring. Right greater than left bibasilar opacities. 6 no new nodular den sity of the right upper lung. Degenerative changes of the shoulders and spine with right shoulder rot ator cuff calcific tendinosis. IMPRESSION: 1. Emphysema with chronic interstitial coarsening. 2. Right greater than left bibasilar opacities suggestive of atelectasis versus pneumonitis. 3. Possible 6 mm pulmonary nodule of the right upper lung. 4. Cardiomegaly. ACT 112: Negative or not required by law. The above report was generated using voice recognition software. It may contain grammatical, syntax o r spelling errors. Electronically signed by: Johny Bell M.D. 03/17/2021 5:48 PM
[2021-03-17 17:55] LABS: INR 1.1 (0.9-1.1); Prothrombin Time 10.8 Seconds (9.0-12.0)
[2021-03-17 18:07] LABS: Albumin Level 3.5 gm/dl (3.4-5.0); BUN Creatinine Ratio 15.7 (10-20); Calcium 8.3 mg/dl (8.5-10.1); Creatinine Clr Calc Pharmacy 44.3 ml/min; Est GFR (African American) 57.4 ml/min; Est GFR (Non-African American) 49.5 ml/min; Potassium 4.2 mmol/L (3.5-5.1)
[2021-03-17 18:10] LABS: Albumin Globulin Ratio 0.9 (0.9-2); Bilirubin,Total 0.6 mg/dl (0.2-1); Globulin 3.9 gm/dl (2.5-4.0); Total Protein 7.4 gm/dl (6.4-8.2)
[2021-03-17] MEDS: SODIUM CHLORIDE 0.9% 1000ML 1,000 ML IV SCH (18:13)
[2021-03-17] MEDS ORDERED: MoRPHine SULFATE 10 MG/ML CARP/VIAL IV STA (19:38)
[2021-03-17] MEDS ORDERED: ondansetron HCL 8 MG in DEXTROSE 5% 50 ML IV PRN (20:04)
[2021-03-17] MEDS ORDERED: NALOXONE HCL 0.4 MG/1 ML VIAL/CARP IV PRN (20:04)
--- NOTE | 2021-03-17 20:38 | History & Physical Report ---
Date of Service March 17, 2021 Assessment & Plan (1) Laryngeal cancer: Rogers Quarles is a 70-year-old male with past medical history significant for laryngeal cancer, laryngectomy, and tracheostomy in place without instrumentation/kit; who presents for concern of 2-month recurrence of inability to tolerate oral intake with additional 10 to 15 pound weight loss over this time. Laryngeal cancer: -Based off of worsening of patient's ability to tolerate oral intake and setting of 10 to 15 pound weight loss over the last 2 months concerned that this demonstrates a return of his laryngeal cancer -GI consulted in the emergency department; discussed necessity of G-tube placement for continued nutritional support and inability to provide medications -Patient with pain medications and oral vitamin taking at baseline however given concerns for need of G-tube will order IV medication -Ordered 4 mg of morphine every hour for continued pain -We will continue his IV pain medications in the setting of pain, until completion of G-tube placement -N.p.o. at midnight for G-tube placement in a.m. Tracheostomy: -Patient does not have kit in place and overnight continue to have issues with mucosal secretions and hardening despite humidification -Patient might necessitate cath being inserted in order to ensure secretions do not occluded airway -Respiratory therapy continue to work with patient on frequent deep suctioning and clearance of trach -Continue trach collar with suctioning as needed -Consideration of mucolytic's and he will attempt to lessen secretion burden and decrease potential side effects as a result of this occlusion Diet: NPO CODE STATUS: Full code (2) Dysphagia: (3) Dehydration: History of Present Illness Primary Care Provider: Willa Richardson MD Rogers Quarles is a 70-year-old male with past medical history significant for laryngeal cancer, laryngectomy, and tracheostomy in place without instrumentation/kit; who presents for concern of 2-month recurrence of inability to tolerate oral intake with additional 10 to 15 pound weight loss over this time. Has been trying to take in mostly liquids that would be able to be absorbed in his mouth and was crushing his medications in order to continue to get pain relief. Continues to have pain of his upper airway/neck which ultimately is what prompted him to come back in. Understands that he has recurrence of his laryngeal cancer at this point time. Is nonverbal at baseline utilizes dry erase marker and board in order to communicate needs and/or wants. Allergies Allergy/AdvReac Type Severity Reaction Status Date / Time Influenza Virus Vaccines Allergy Severe "almost Verified 03/18/21 15:18 killed me" Home Medications Medication Instructions Recorded Confirmed Type baclofen 5 mg PO TID PRN 06/17/19 03/17/21 History cyanocobalamin (vitamin B-12) 500 mcg PO QAM 06/17/19 03/17/21 History docusate sodium 100 mg PO BID 06/17/19 03/17/21 History gabapentin 300 mg PO TID 06/17/19 03/17/21 History melatonin 3 mg PO HS PRN 06/17/19 03/17/21 History mirtazapine 45 mg PO QPM 06/17/19 03/17/21 History morphine [MS Contin] 60 mg PO Q6 06/17/19 03/17/21 History oxycodone 15 mg PO .EVERY 3 HOURS PRN 06/17/19 03/17/21 History sennosides 8.6 mg PO BID 06/17/19 03/17/21 History sertraline 200 mg PO QAM 06/17/19 03/17/21 History phenylephrine HCl 0.25 % rectal 1 supp VT HS ea 07/19/19 03/17/21 History suppository quetiapine 300 mg tablet 300 mg PO HS tab 07/19/19 03/17/21 History ciprofloxacin-dexamethasone 4 drp OTR BID 03/17/21 03/17/21 History famotidine 20 mg PO BID PRN 03/17/21 03/17/21 History hydroxyzine HCl 10 mg PO BID PRN 03/17/21 03/17/21 History naloxone 4 mg INTRANASAL DAILY PRN 03/17/21 03/17/21 History ondansetron HCl 8 mg PO Q12 03/17/21 03/17/21 History Past Med/Surg History Medical History Anxiety BPH (benign prostatic hyperplasia) Cancer of base of tongue (01/04/17) "PET positive area left base of tongue Status post biopsy 01/04/2017 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 History of tonsillectomy and adenoidectomy History of tooth extraction all teeth removed History of tracheostomy no cuff, not sure of size--had since 2014 @ [facility] Status post myringotomy with tube placement of both ears Family History Father Family history of esophageal cancer Other Asthma No family history of adverse response to anesthesia Social History Smoking Status: Former smoker Second Hand Exposure: Yes ( smokes); Hx Alcohol Use: No Hx Substance Use: No Preferred Language: Palestinian Communication Ability: Impaired Load Out Supervisor Required: No Beliefs That Will Affect Care: None Current Living Situation: Spouse Current Living Situation Comment: at home with Other Information That Helps Us Care for You: No Feels Safe at Home: Yes Safety Concerns: Feels Safe At This Time Assistive Devices: Oxygen - Continuous Assistive Devices Comment: pt brought home trach collar, put back in pt belongings bag in closet Review of Systems Review of Systems: All systems reviewed & are unremarkable except as noted in HPI & below Physical Exam Constitutional: WD/WN, vitals as above Eyes: PERRL, conjunctivae normal, anicteric sclerae Respiratory: normal respiratory effort, lungs clear to auscultation Auscultation: + wheezes; no crackles, no rales and no rhonchi Cardiovascular: Rate/Rhythm: regular rate and regular rhythm Heart Sounds: no gallop, no murmur and no cardiac rub Vessels: normal peripheral pulses; no JVD Extremities: no edema Gastrointestinal (Abdomen): Inspection/Auscultation: normal bowel sounds; abdomen not distended Percussion/Palpation: abdomen soft; abdomen nontender and no guarding Musculoskeletal: no cyanosis or clubbing, extremities motor strength 5/5 Skin: no rashes, warm and dry Neurologic: PERRL, EOMI, accommodation nl, no face palsy, no dysarthria moves all extremities Psychiatric: Orientation: alert and oriented x 3 Results & Data Results & Data ([facility]) Vital Signs (Past 12 Hours) Vital Signs Temp Pulse Resp BP Pulse Ox 03/17/21 20:30 91 H 17 158/84 H 92 03/17/21 20:00 94 H 17 170/130 H 93 03/17/21 19:30 93 H 17 151/110 H 92 03/17/21 19:00 94 H 17 165/90 H 92 03/17/21 18:30 97 H 19 161/91 H 90 03/17/21 18:00 101 H 22 175/89 H 93 03/17/21 17:30 98 H 19 94 03/17/21 17:00 94 H 16 155/94 H 92 03/17/21 16:30 101 H 19 141/80 H 91 03/17/21 16:02 105 H 15 91 03/17/21 16:00 105 H 20 141/79 H 90 03/17/21 15:46 37.6 C H 111 H 24 147/76 H 71 L Laboratory Results 03/18/21 03/18/21 03/17/21 Range/Units 06:34 06:34 17:40 WBC 10.06 (4.8-10.8) K/uL RBC 4.50 L (4.7-6.1) M/uL Hgb 12.2 L (14.0-18.0) g/dL Hct 37.8 L (42-52) % MCV 84.0 (80-100) fL MCH 27.1 (25-34) pg MCHC 32.3 (32-36) g/dL RDW Std Deviation 47.6 H (36.4-46.3) fL RDW Coeff of Kennedi 15.4 H (11.5-14.5) % Plt Count 220 (130-400) K/uL MPV 9.3 (7.4-10.4) fL Immature Gran % (Auto) 0.1 % Neut % (Auto) 79.5 % Lymph % (Auto) 6.9 % Ray % (Auto) 13.2 % Eos % (Auto) 0.2 % Baso % (Auto) 0.1 % Neut # (Auto) 8.00 H (1.4-6.5) K/uL Lymph # (Auto) 0.69 L (1.2-3.4) K/uL Ray # (Auto) 1.33 H (0.11-0.59) K/uL Eos # (Auto) 0.02 (0-0.5) K/uL Baso # (Auto) 0.01 (0-0.2) K/uL Immature Gran # (Auto) 0.01 (0.00-0.02) K/uL PT (9.0-12.0) Seconds INR (0.9-1.1) Sodium 137 (136-145) mmol/L Potassium 3.8 (3.5-5.1) mmol/L Chloride 107 (98-107) mmol/L Carbon Dioxide 23 (21-32) mmol/L Anion Gap 8.0 (3-11) BUN 22 H (7-18) mg/dl Creatinine 1.05 (0.6-1.4) mg/dl Est Cr Clr Drug Dosing 60.8 ml/min Est GFR ( Amer) 84.1 ml/min Est GFR (Non-Af Amer) 72.6 ml/min BUN/Creatinine Ratio 21.1 H (10-20) Glucose 91 (70-99) mg/dl Calcium 7.9 L (8.5-10.1) mg/dl Phosphorus 2.1 L (2.5-4.9) mg/dl Magnesium 2.1 (1.8-2.4) mg/dl Total Bilirubin (0.2-1) mg/dl AST (15-37) U/L ALT (12-78) U/L Alkaline Phosphatase (45-117) U/L Total Protein (6.4-8.2) gm/dl Albumin (3.4-5.0) gm/dl Globulin (2.5-4.0) gm/dl Albumin/Globulin Ratio (0.9-2) COVID-19 Eval Order SARS-CoV-2 (PCR) NEGATIVE (Negative) 03/17/21 03/17/21 03/17/21 Range/Units 17:40 17:30 17:30 WBC (4.8-10.8) K/uL RBC (4.7-6.1) M/uL Hgb (14.0-18.0) g/dL Hct (42-52) % MCV (80-100) fL MCH (25-34) pg MCHC (32-36) g/dL RDW Std Deviation (36.4-46.3) fL RDW Coeff of Kennedi (11.5-14.5) % Plt Count (130-400) K/uL MPV (7.4-10.4) fL Immature Gran % (Auto) % Neut % (Auto) % Lymph % (Auto) % Ray % (Auto) % Eos % (Auto) % Baso % (Auto) % Neut # (Auto) (1.4-6.5) K/uL Lymph # (Auto) (1.2-3.4) K/uL Ray # (Auto) (0.11-0.59) K/uL Eos # (Auto) (0-0.5) K/uL Baso # (Auto) (0-0.2) K/uL Immature Gran # (Auto) (0.00-0.02) K/uL PT 10.8 (9.0-12.0) Seconds INR 1.1 (0.9-1.1) Sodium 137 (136-145) mmol/L Potassium 4.2 (3.5-5.1) mmol/L Chloride 104 (98-107) mmol/L Carbon Dioxide 26 (21-32) mmol/L Anion Gap 7.0 (3-11) BUN 23 H (7-18) mg/dl Creatinine 1.44 H (0.6-1.4) mg/dl Est Cr Clr Drug Dosing 44.3 ml/min Est GFR ( Amer) 57.4 ml/min Est GFR (Non-Af Amer) 49.5 ml/min BUN/Creatinine Ratio 15.7 (10-20) Glucose 101 H (70-99) mg/dl Calcium 8.3 L (8.5-10.1) mg/dl Phosphorus (2.5-4.9) mg/dl Magnesium (1.8-2.4) mg/dl Total Bilirubin 0.6 (0.2-1) mg/dl AST 18 (15-37) U/L ALT 17 (12-78) U/L Alkaline Phosphatase 97 (45-117) U/L Total Protein 7.4 (6.4-8.2) gm/dl Albumin 3.5 (3.4-5.0) gm/dl Globulin 3.9 (2.5-4.0) gm/dl Albumin/Globulin Ratio 0.9 (0.9-2) COVID-19 Eval Order Covid19 at [facility] SARS-CoV-2 (PCR) (Negative) 03/17/21 Range/Units 17:30 WBC 11.67 H (4.8-10.8) K/uL RBC 4.91 (4.7-6.1) M/uL Hgb 13.4 L (14.0-18.0) g/dL Hct 40.5 L (42-52) % MCV 82.5 (80-100) fL MCH 27.3 (25-34) pg MCHC 33.1 (32-36) g/dL RDW Std Deviation 46.2 (36.4-46.3) fL RDW Coeff of Kennedi 15.2 H (11.5-14.5) % Plt Count 224 (130-400) K/uL MPV 9.1 (7.4-10.4) fL Immature Gran % (Auto) 0.3 % Neut % (Auto) 82.2 % Lymph % (Auto) 5.5 % Ray % (Auto) 11.9 % Eos % (Auto) 0.0 % Baso % (Auto) 0.1 % Neut # (Auto) 9.60 H (1.4-6.5) K/uL Lymph # (Auto) 0.64 L (1.2-3.4) K/uL Ray # (Auto) 1.39 H (0.11-0.59) K/uL Eos # (Auto) 0.00 (0-0.5) K/uL Baso # (Auto) 0.01 (0-0.2) K/uL Immature Gran # (Auto) 0.03 H (0.00-0.02) K/uL PT (9.0-12.0) Seconds INR (0.9-1.1) Sodium (136-145) mmol/L Potassium (3.5-5.1) mmol/L Chloride (98-107) mmol/L Carbon Dioxide (21-32) mmol/L Anion Gap (3-11) BUN (7-18) mg/dl Creatinine (0.6-1.4) mg/dl Est Cr Clr Drug Dosing ml/min Est GFR ( Amer) ml/min Est GFR (Non-Af Amer) ml/min BUN/Creatinine Ratio (10-20) Glucose (70-99) mg/dl Calcium (8.5-10.1) mg/dl Phosphorus (2.5-4.9) mg/dl Magnesium (1.8-2.4) mg/dl Total Bilirubin (0.2-1) mg/dl AST (15-37) U/L ALT (12-78) U/L Alkaline Phosphatase (45-117) U/L Total Protein (6.4-8.2) gm/dl Albumin (3.4-5.0) gm/dl Globulin (2.5-4.0) gm/dl Albumin/Globulin Ratio (0.9-2) COVID-19 Eval Order SARS-CoV-2 (PCR) (Negative) Medications Administered Current Inpatient Medications Heparin Sodium (Porcine) (Heparin Sod 5,000 Unit/0.5 Ml Vial) 5,000 units SQ Q12 [facility] Stop: 04/16/21 22:59 Last Admin: 03/18/21 09:21 Dose: Not Given Documented by: Sodium Chloride (Nss 1000ml) 1,000 mls @ 125 mls/hr IV .Q8H SIMONE Stop: 04/16/21 17:14 Last Admin: 03/18/21 00:01 Dose: 125 mls/hr Documented by: Ondansetron HCl 8 mg/ Dextrose 54 mls @ 200 mls/hr IV Q6H PRN PRN Reason: Nausea And Vomiting Stop: 04/16/21 20:03 Morphine Sulfate (Morphine Sulfate 4 Mg/Ml 1 Ml Carp\\Vial) 4 mg IV Q1H PRN PRN Reason: Pain Stop: 03/31/21 20:03 Last Admin: 03/18/21 07:34 Dose: 4 mg Documented by: Naloxone HCl (Naloxone Hcl 0.4 Mg/1 Ml Vial/Carp) 0.05 mg IV Q2M PRN PRN Reason: oversedation Stop: 04/16/21 20:03 Code Status & VTE Plan VTE Prophylaxis Plan VTE Prophylaxis will be ordered: Yes Supervising Physician Co-Signing Physician Notes Patient seen and examined, chart reviewed, case discussed with Dr. Charlton and I agree with his assessment and plan as documented above. Briefly, patient is a 70yo male with history of Head and Neck cancer in 2015 with recurrence in 2017 s/p laryngectomy and tracheostomy now with open stoma presenting for placement o f PEG tube due to inability to tolerate oral intake, weight loss. On exam patient is afebrile, HD stable, NAD s/p tracheostomy now with open stoma Patient is nonverbal and communicates using a dry erase board +S1/S2, regular, no m/r/g Lungs - CTA Abd - +BS, soft, NT/ND Ext - No edema Labs and images reviewed Assessment/Plan GI consultation appreciated - plan for placement of G-tube Pain control PRN Secretion management as needed Remainder of plan as above Resident Activity Tracking Resident Involvement: Resident Care Provided Care Provided: Adult Hospital Medicine (1) Dysphagia Dysphagia type: unspecified Qualified Code(s): R13.10 - Dysphagia, unspecified
[2021-03-17] MEDS: MoRPHine SULFATE 4 MG/ML 1 ML CARP\\VIAL IV PRN (23:03)
[2021-03-17] MEDS ORDERED: LORazepam 2 MG/4 ML VIAL IV STA (23:44)
[2021-03-18] MEDS: SODIUM CHLORIDE 0.9% 1000ML 1,000 ML IV SCH ×3 (00:01→21:52)
[2021-03-18] MEDS: HEPARIN SOD 5,000 UNIT/0.5 ML VIAL SQ SCH ×4 (00:01→21:55)
[2021-03-18] MEDS ORDERED: NALOXONE HCL 0.4 MG/1 ML VIAL/CARP IV PRN (01:55)
[2021-03-18] MEDS: MoRPHine SULFATE 4 MG/ML 1 ML CARP\\VIAL IV PRN ×4 (04:48→16:51)
[2021-03-18 07:20] LABS: Basophils # (auto) 0.01 K/uL (0-0.2); Basophils % (auto) 0.1 %; Eosinophils # (auto) 0.02 K/uL (0-0.5); Eosinophils % (auto) 0.2 %; Hematocrit (blood only) 37.8 % (42-52); Hemoglobin 12.2 g/dL (14.0-18.0); Immature Granulocytes # (auto) 0.01 K/uL (0.00-0.02); Immature Granulocytes % (auto) 0.1 %; Lymphocytes # (auto) 0.69 K/uL (1.2-3.4); Lymphocytes % (auto) 6.9 %; Mean Corpuscular Hemoglobin 27.1 pg (25-34); Mean Corpuscular Hgb Conc 32.3 g/dL (32-36); Mean Platelet Volume 9.3 fL (7.4-10.4); Monocytes # (auto) 1.33 K/uL (0.11-0.59); Monocytes % (auto) 13.2 %; Neutrophils % (auto) 79.5 %; Platelet Count 220 K/uL (130-400); RDW Coefficient of Variation 15.4 % (11.5-14.5); RDW Standard Deviation 47.6 fL (36.4-46.3); White Blood Count 10.06 K/uL (4.8-10.8)
[2021-03-18 07:55] LABS: BUN Creatinine Ratio 21.1 (10-20); Calcium 7.9 mg/dl (8.5-10.1); Creatinine Clr Calc Pharmacy 60.8 ml/min; Est GFR (African American) 84.1 ml/min; Est GFR (Non-African American) 72.6 ml/min; Magnesium 2.1 mg/dl (1.8-2.4); Phosphorus 2.1 mg/dl (2.5-4.9); Potassium 3.8 mmol/L (3.5-5.1)
--- NOTE | 2021-03-18 08:16 | Anesthesiology Consultation ---
Date of Service March 18, 2021 Assessment & Plan (1) Encounter for pre-operative examination: Chart Review Chart Review: Acceptable Risk for Surgery (Will evaluate patient prior to procedure), Patient NOT seen in Pre Admission Testing and entry level project coordinator initiated Consults Requested none Proposed Anesthesia Risk / Benefits Reviewed With: PT / POA / Parent / Guardian History Surgery Operation Date: 03/18/21 16:45 Proposed Procedures p Esophagogastroduodenoscopy Dr Khan - Flavio Khan MD Height/Weight Height: 5 ft 6 in Weight: 66.7 kg Allergies Allergy/AdvReac Type Severity Reaction Status Date / Time Flu Virus Vaccine Allergy Severe "almost Uncoded 03/17/21 18:15 killed me" Medications Home Medications Medication Instructions Recorded Confirmed Last Taken baclofen 5 mg PO TID PRN 06/17/19 03/17/21 08/01/19 20:00 cyanocobalamin (vitamin B-12) 500 mcg PO QAM 06/17/19 03/17/21 08/01/19 08:00 docusate sodium 100 mg PO BID 06/17/19 03/17/21 08/01/19 20:00 gabapentin 300 mg PO TID 06/17/19 03/17/21 08/01/19 20:00 melatonin 3 mg PO HS PRN 06/17/19 03/17/21 08/01/19 20:00 mirtazapine 45 mg PO QPM 06/17/19 03/17/21 08/01/19 20:00 morphine [MS Contin] 60 mg PO Q6 06/17/19 03/17/21 08/01/19 20:00 oxycodone 15 mg PO .EVERY 3 HOURS PRN 06/17/19 03/17/21 08/02/19 03:00 sennosides 8.6 mg PO BID 06/17/19 03/17/21 08/01/19 20:00 sertraline 200 mg PO QAM 06/17/19 03/17/21 08/01/19 08:00 phenylephrine HCl 0.25 % rectal 1 supp SC HS ea 07/19/19 03/17/21 Unknown suppository quetiapine 300 mg tablet 300 mg PO HS tab 07/19/19 03/17/21 08/01/19 20:00 ciprofloxacin-dexamethasone 4 drp OTR BID 03/17/21 03/17/21 Unknown famotidine 20 mg PO BID PRN 03/17/21 03/17/21 Unknown hydroxyzine HCl 10 mg PO BID PRN 03/17/21 03/17/21 Unknown naloxone 4 mg INTRANASAL DAILY PRN 03/17/21 03/17/21 Unknown ondansetron HCl 8 mg PO Q12 03/17/21 03/17/21 Unknown Active Medications Generic Name Dose Route Start Last Admin Trade Name Freq PRN Reason Stop Dose Admin Heparin Sodium (Porcine) 5,000 units 03/17/21 23:00 03/18/21 00:01 Heparin Sod 5,000 Unit/0.5 Ml Vial SQ 04/16/21 22:59 Not Given Q12 SIMONE Sodium Chloride 1,000 mls @ 125 mls/hr 03/17/21 17:15 03/18/21 00:01 Nss 1000ml IV 04/16/21 17:14 125 mls/hr .Q8H SIMONE Administration Morphine Sulfate 4 mg 03/17/21 20:04 03/18/21 07:34 Morphine Sulfate 4 Mg/Ml 1 Ml Carp\\Vial IV 03/31/21 20:03 4 mg Q1H PRN Administration Pain Past Medical History Medical History (Updated 03/18/21 @ 08:19 by Adal Lees MD) Anxiety BPH (benign prostatic hyperplasia) Cancer of base of tongue (01/04/17) "PET positive area left base of tongue Status post biopsy 01/04/2017 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" Throat pain Tracheostomy in place no cuff, not sure of size--had since 2014 @ [facility]--will bring spare with him Past Family History Family History Father Family history of esophageal cancer Other Asthma No family history of adverse response to anesthesia Past Surgical History Surgical History H/O laryngectomy History of carpal tunnel surgery of right wrist History of colonoscopy History of open reduction and internal fixation (ORIF) procedure x4 surgeries--left ankle, no hardware in place History of sinus surgery History of surgery "cut nerves in abdomen that go to left ankle" ? History of tonsillectomy and adenoidectomy History of tooth extraction all teeth removed History of tracheostomy no cuff, not sure of size--had since 2014 @ [facility] Status post myringotomy with tube placement of both ears Social History Smoking Status: Former smoker Hx Alcohol Use: No Hx Substance Use: No substance use type: does not use Physical Exam Vital Signs Last Vital Signs Temp 37.1 C 03/18/21 07:23 Pulse 85 03/18/21 07:23 Resp 16 03/18/21 07:23 BP 168/79 H 03/18/21 07:23 Pulse Ox 88 L 03/18/21 07:23 Testing Laboratory Results 03/18/21 06:34 03/18/21 06:34 PT 10.8 Seconds (9.0-12.0) 03/17/21 17:30 INR 1.1 (0.9-1.1) 03/17/21 17:30 Electrocardiogram Date: 03/17/21 Normal sinus rhythm Normal ECG When compared with ECG of 09-MAY-2015 18:16, Non- specific change in ST segment in Inferior leads
[2021-03-18] MEDS ORDERED: ceFAZolin 2000MG 2,000 MG/15 ML SYR IV ONE (09:42)
--- NOTE | 2021-03-18 09:42 | Gastrointestinal Consultation ---
Date of Consultation March 18, 2021 Assessment & Plan (1) Laryngeal cancer: (2) Dysphagia: Pt is a 70 y/o male w hx of laryngeal ca s/p tracheostomy, surgery and XRT, recently dx of recurrence, is admitted for dysphagia, painful swallowing and weight loss. PEG tube placement is requested. - Keep NPO - Plan for PEG placement w Dr. Khan today. Ancef IV antibx ordered for pre med - IVF support Supervising Physician Co-Signing Physician Notes I performed a history and physical examination of the patient today, including specifically on physical exam - soft abdomen. I have discussed the patient's management with the advanced practitioner. Please refer to the nurse practitioner's note for the documented findings and plan of care. PEG tube today Patient was explained in detail regarding risks, benefits, limitations and alternatives of the above endoscopic procedure. Risks of intravenous sedation used for procedure were also explained. Risks include, but not limited to perforation, bleeding, infection, respiratory distress, cardiac arrest and . Patient is also aware about the possibility of missed lesion. Patient's questions were answered. The patient verbalized understanding the information and agreed to undergo the procedure. History of Present Illness Reason for Consultation: PEG placement request Requesting Physician: Dr. Lucien Reyes Attending Physician: Lucien Reyes, History of Present Illness Pt si a 70 y/o male who [facility]. He has hx of laryngeal ca s/p tracheostomy, surgery and XRT,recently diagnosed of recurrence. He had been having increasing dysphagia and painful swallowing in the last few months, PO intake is decreased and he had lost 10-15 lbs. No n/v, bowel habit changes. He had previous EGD w dilation in 2019 - at that time no esophageal abnormality was found to explain his dysphagia, and his gastrostomy had been closed. Allergies Allergy/AdvReac Type Severity Reaction Status Date / Time Flu Virus Vaccine Allergy Severe "almost Uncoded 03/18/21 11:02 killed me" Home Medications Medication Instructions Recorded Confirmed Type baclofen 5 mg PO TID PRN 06/17/19 03/17/21 History cyanocobalamin (vitamin B-12) 500 mcg PO QAM 06/17/19 03/17/21 History docusate sodium 100 mg PO BID 06/17/19 03/17/21 History gabapentin 300 mg PO TID 06/17/19 03/17/21 History melatonin 3 mg PO HS PRN 06/17/19 03/17/21 History mirtazapine 45 mg PO QPM 06/17/19 03/17/21 History morphine [MS Contin] 60 mg PO Q6 06/17/19 03/17/21 History oxycodone 15 mg PO .EVERY 3 HOURS PRN 06/17/19 03/17/21 History sennosides 8.6 mg PO BID 06/17/19 03/17/21 History sertraline 200 mg PO QAM 06/17/19 03/17/21 History phenylephrine HCl 0.25 % rectal 1 supp MI HS ea 07/19/19 03/17/21 History suppository quetiapine 300 mg tablet 300 mg PO HS tab 07/19/19 03/17/21 History ciprofloxacin-dexamethasone 4 drp OTR BID 03/17/21 03/17/21 History famotidine 20 mg PO BID PRN 03/17/21 03/17/21 History hydroxyzine HCl 10 mg PO BID PRN 03/17/21 03/17/21 History naloxone 4 mg INTRANASAL DAILY PRN 03/17/21 03/17/21 History ondansetron HCl 8 mg PO Q12 03/17/21 03/17/21 History Patient History Medical History Anxiety BPH (benign prostatic hyperplasia) Cancer of base of tongue (01/04/17) "PET positive area left base of tongue Status post biopsy 01/04/2017 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 History of tonsillectomy and adenoidectomy History of tooth extraction all teeth removed History of tracheostomy no cuff, not sure of size--had since [address] in [place] Status post myringotomy with tube placement of both ears Family History Father Family history of esophageal cancer Other Asthma No family history of adverse response to anesthesia Social History Smoking Status: Former smoker Second Hand Exposure: Yes ( smokes); Hx Alcohol Use: No Hx Substance Use: No Preferred Language: Pakistani Communication Ability: Impaired Bus Person Required: No Beliefs That Will Affect Care: None Current Living Situation: Spouse Current Living Situation Comment: at home with Other Information That Helps Us Care for You: No Feels Safe at Home: Yes Safety Concerns: Feels Safe At This Time Assistive Devices: Glasses and Oxygen - at Night Assistive Devices Comment: pt brought home trach collar, put back in pt belongings bag in closet Review of Systems Review of Systems: All systems reviewed & are unremarkable except as noted in HPI & below Physical Exam Constitutional: WD/WN, vitals as above well groomed, cooperative and comfortable Eyes: PERRL, conjunctivae normal, anicteric sclerae ENMT: external ear and nose normal, oropharynx normal Neck: + tracheostomy present (Pt on Oxygen collar ) Respiratory: no respiratory distress and does not use accessory muscles Auscultation: + diminished lung sounds Cardiovascular: RRR, no murmur, no edema Gastrointestinal (Abdomen): normal bowel sounds, soft, nontender, no hepatosplenomegaly Skin: no rashes, warm and dry no jaundice Psychiatric: A+Ox3, euthymic affect Lymphatic: no lymphedema Results & Data ([facility]) Vital Signs (Past 12 Hours) Vital Signs Temp Pulse Pulse Resp BP Pulse Ox 03/18/21 08:00 89 03/18/21 07:23 37.1 C 85 16 168/79 H 88 L 03/18/21 04:00 36.9 C 82 22 162/75 H 90 03/18/21 01:50 91 H 03/17/21 22:45 80 24 93 03/17/21 22:27 37.0 C 86 30 H 170/77 H 94 (1) Dysphagia Dysphagia type: unspecified Qualified Code(s): R13.10 - Dysphagia, unspecified
--- NOTE | 2021-03-18 09:43 | Medical Student Progress Note ---
Date of Service March 18, 2021 Assessment & Plan Admission and Anticipated Discharge Date Admission Date: March 17, 2021 Supervising Attestation I personally examined the patient and verified all morrison points of history and exam, discussed case, and agree with decision making with Keanu Javier A little bit of stomach pain after PEG tube placement. No other acute complaints. Nutrition and GI input greatly appreciated. Vitals noted, in general he is awake and alert. No distress. HEENT normocephalic atraumatic mucous membranes moist. Breathing unlabored no accessory muscle use good effort. Skin shows no rashes no pallor or icterus. Dysphagia/feeding disorder with failure to thrive, as well as probably acute moderate protein calorie malnutritionnow status post PEG, will be able to start tube feeds tomorrow, work towards getting him to goal and then home. Otherwise as above Subjective Mr. Quarles was lying comfortably in his bed when I saw him this morning and he was feeling good. He communicated using a pen and note pad and responded to yes/no questions. He is aware that he will have a PEG tube placed today. Review of Systems Constitutional: no fever and no chills Gastrointestinal: no abdominal pain, no nausea, no vomiting, no constipation and no diarrhea/loose stools Genitourinary: no difficulty urinating, no urinary frequency and no hematuria Physical Exam Constitutional: well developed and well nourished; no acute distress and not ill appearing Neck: + tracheostomy present Respiratory: normal respiratory effort Auscultation: + wheezes; no rales and no rhonchi mildly coarse breath sounds, upper airway sounds Cardiovascular: Rate/Rhythm: regular rate and regular rhythm Heart Sounds: normal S1 and normal S2; no gallop, no murmur and no cardiac rub Gastrointestinal (Abdomen): Inspection/Auscultation: abdomen normal to inspection and + hypoactive bowel sounds; abdomen not distended Percussion/Palpation: abdomen nontender Skin: no rashes, warm and dry Results & Data ([facility]) Vital Signs (Past 12 Hours) Vital Signs Temp Pulse Pulse Resp BP Pulse Ox 03/18/21 08:00 89 03/18/21 07:23 37.1 C 85 16 168/79 H 88 L 03/18/21 04:00 36.9 C 82 22 162/75 H 90 03/18/21 01:50 91 H 03/17/21 22:45 80 24 93 03/17/21 22:27 37.0 C 86 30 H 170/77 H 94
[2021-03-18] MEDS ORDERED: PROPOFOL IV EMULSION 10 MG/ML 20 ML VIAL IV ONE ×2 (11:45→12:15)
[2021-03-18] MEDS ORDERED: LIDOCAINE 2% 2 ML VIAL/AMP(20MG/ML) INFIL ONE (11:45)
--- NOTE | 2021-03-18 13:00 | Anesthesiology Progress Note ---
Date of Service March 18, 2021 Anesthesia Post Procedure Vital Signs Vital Signs: Temp Pulse Pulse Resp BP BP Pulse Ox 03/18/21 12:40 86 16 142/85 H 92 03/18/21 12:25 83 16 124/70 94 03/18/21 12:20 80 16 101/57 L 91 03/18/21 11:08 37 C 91 H 20 166/94 H 92 03/18/21 08:00 89 03/18/21 07:23 37.1 C 85 16 168/79 H 88 L 03/18/21 04:00 36.9 C 82 22 162/75 H 90 03/18/21 01:50 91 H 03/17/21 22:45 80 24 93 03/17/21 22:27 37.0 C 86 30 H 170/77 H 94 03/17/21 21:30 88 18 167/96 H 91 03/17/21 21:00 93 H 14 152/81 H 91 03/17/21 20:30 91 H 17 158/84 H 92 03/17/21 20:00 94 H 17 170/130 H 93 03/17/21 19:30 93 H 17 151/110 H 92 03/17/21 19:00 94 H 17 165/90 H 92 03/17/21 18:30 97 H 19 161/91 H 90 03/17/21 18:00 101 H 22 175/89 H 93 03/17/21 17:30 98 H 19 94 03/17/21 17:00 94 H 16 155/94 H 92 03/17/21 16:30 101 H 19 141/80 H 91 03/17/21 16:02 105 H 15 91 03/17/21 16:00 105 H 20 141/79 H 90 03/17/21 15:46 37.6 C H 111 H 24 147/76 H 71 L Pain Intensity Throat: Pain Intensity: 10 Transfer of Care Handoff Completed per policy Notes Mental Status: alert / awake / arousable and participated in evaluation Patient Amnestic to Procedure: Yes Nausea / Vomiting: adequately controlled Pain: adequately controlled Airway Patency, RR, SpO2: stable & adequate BP & HR: stable & adequate Hydration State: stable & adequate Anesthetic Complications: no major complications apparent and Pt Satisfied with anesthetic care
--- NOTE | 2021-03-18 13:05 | GI REPORT ---
Patient Name: Rogers Quarles Procedure Date: 03/18/2021 11:31 AM Date of : 1950 Admit Type: Inpatient Age: 70 Gender: Male Attending MD: Flavio Khan MD Procedure: Upper GI endoscopy Providers: Flavio Khan MD Referring MD: Lucien Reyes Indications: Place PEG because patient is unable to eat, Place PEG due to feeding difficulties secondary to oropharyngeal tumor Medicines: Propofol per Anesthesia Complications: No immediate complications. Estimated Blood Loss: Estimated blood loss: none. Procedure: Pre-Anesthesia Assessment: - Prior to the procedure, a History and Physical was performed, and patient medications, allergies and sensitivities were reviewed. The patient's tolerance of previous anesthesia was reviewed. - The risks and benefits of the procedure and the sedation options and risks were discussed with the patient. All questions were answered and informed consent was obtained. - Patient identification and proposed procedure were verified prior to the procedure by the physician and the nurse. The procedure was verified in the procedure room. - Pre-procedure physical examination revealed no contraindications to sedation. After obtaining informed consent, the endoscope was passed under direct vision. Throughout the procedure, the patient's blood pressure, pulse, and oxygen saturations were monitored continuously. The Endoscope was introduced through the mouth, and advanced to the second part of duodenum. The upper GI endoscopy was accomplished without difficulty. The patient tolerated the procedure well. Findings: The examined esophagus was normal. There was evidence of a closed previous gastrostomy present in the gastric antrum. This was characterized by healthy appearing mucosa. The entire examined stomach was normal. The patient was placed in the supine position for PEG placement. The stomach was insufflated to appose gastric and abdominal sparks. A site was located in the body of the stomach with excellent transillumination and manual external pressure for placement. The abdominal wall was marked and prepped in a sterile manner. The area was anesthetized with 1 mL of 1% lidocaine. The trocar needle was introduced through the abdominal wall and into the stomach under direct endoscopic view. A snare was introduced through the endoscope and opened in the gastric lumen. The guide wire was passed through the trocar and into the open snare. The snare was closed around the guide wire. The endoscope and snare were removed, pulling the wire out through the mouth. A skin incision was made at the site of needle insertion. The externally removable 20 Fr Abelino-Cook gastrostomy tube was lubricated. The G-tube was tied to the guide wire and pulled through the mouth and into the stomach. The trocar needle was removed, and the gastrostomy tube was pulled out from the stomach through the skin. The external bumper was attached to the gastrostomy tube, and the tube was cut to remove the guide wire. The final position of the gastrostomy tube was confirmed by relook endoscopy, and skin marking noted to be 2 cm at the external bumper. The final tension and compression of the abdominal wall by the PEG tube and external bumper were checked and revealed that the bumper was moderately tight and mildly deforming the skin. The feeding tube was capped, and the tube site cleaned and dressed. The duodenal bulb and second portion of the duodenum were normal. Impression: - Normal esophagus. - Closed previous gastrostomy. - An externally removable PEG placement was successfully completed. - Normal duodenal bulb and second portion of the duodenum. - No specimens collected. Recommendation: - [facility]. - Please follow the post-PEG recommendations including: Nutrition consult for formula and volume, advance food and medications per primary care provider, dry dressing only, may use PEG tomorrow for feedings after checked by physician. Flavio Khan MD 03/18/2021 1:04:32 PM This report has been signed electronically. Note Initiated On: 03/18/2021 11:31 AM Number of Addenda: 0 I attest to the content of the Intraoperative Record and orders documented therein, exceptions below {[id number]}
--- NOTE | 2021-03-18 16:54 | CT Scan Report ---
CT soft tissue neck wo con HISTORY: 70 years-old Male r/o neck mass, dysphagia, ? recurrent cancer acute dysphasia and a patien t with history of prior laryngectomy and tracheostomy COMPARISON: CT soft tissue neck 02/07/2017, 02/09/2017, PET CT 07/19/2017. TECHNIQUE: Multiple axial CT images of the soft tissues of the neck were obtained without the use of IV contrast. A dose lowering technique was used consistent with the principals of ALARA. FINDINGS: Limited exam without the use of IV contrast. The imaged intracranial structures demonstrate no acute abnormality. Unremarkable orbits. Patent nasopharynx. Postoperative changes redemonstrated compatible with prior laryngectomy with probable tracheoesophageal prosthesis and tracheostomy cannula. Asymmet frank fullness within the base of the tongue/lingual tonsil distribution on the right measuring 1.3 cm is similar to comparison. Progressive soft tissue thickening measuring 2.3 x 1.6 cm is noted along th e left anterolateral aspect of the airway on image 276 series 3 superior to the tracheostomy cannula which is new from comparison. Atrophic heterogeneous thyroid tissue. Right tracheoesophageal recess l ymph nodes measure up to 7 mm. A 9 mm left supraclavicular lymph node is present on image 342. No pat hologically enlarged lymph nodes are identified. No parapharyngeal or prevertebral fluid collections identified. Calcified plaque of the carotid bulbs. There is wall thickening of the thoracic esophagus which is similar to comparison with air-fluid level and intraluminal debris. Emphysema. No pneumotho rax. Mastoid air cells are clear. Mild mucosal thickening of the paranasal sinuses. Degenerative abdi ges of the spine. No suspicious bone lesion. IMPRESSION: 1. Postoperative changes of prior laryngectomy with tracheostomy and possible tracheoesophageal prost hesis. 2. Limited exam without the use of IV contrast. There is a new area of irregular soft tissue thickeni ng along the left anterolateral aspect of the airway superior to the tracheostomy cannula measuring 2 .3 x 1.6 cm suspicious for neoplasm. This could be confirmed with a follow-up PET/CT. 3. Asymmetric fullness in the region of the right lingual tonsils is similar to comparison and likely represents asymmetric tonsillar tissue. 4. No pathologically enlarged lymph nodes identified. Mildly prominent right tracheoesophageal recess and left supraclavicular lymph nodes. 5. Mild distention of the esophagus with associated wall thickening and periesophageal inflammatory s tranding. ACT 112: Negative or not required by law. The above report was generated using voice recognition software. It may contain grammatical, syntax o r spelling errors. Electronically signed by: Johny Bell M.D. 03/18/2021 4:53 PM
[2021-03-18] MEDS: LORazepam 1 MG/2 ML VIAL IV PRN (21:52)
[2021-03-19] MEDS: SODIUM CHLORIDE 0.9% 1000ML 1,000 ML IV SCH ×2 (01:26→07:52)
[2021-03-19] MEDS: MoRPHine SULFATE 4 MG/ML 1 ML CARP\\VIAL IV PRN ×6 (02:38→23:18)
--- NOTE | 2021-03-19 03:28 | Billing Data ---
Date of Service March 17, 2021 Coding Level of Care Code 99224 Initial Inpt Care Lvl 2
--- NOTE | 2021-03-19 06:22 | Electrocardiogram Report ---
Test Reason : Blood Pressure : / mmHG Vent. Rate : 097 BPM Atrial Rate : 097 BPM P-R Int : 124 ms QRS Dur : 086 ms QT Int : 356 ms P-R-T Axes : 042 047 028 degrees QTc Int : 452 ms Normal sinus rhythm Normal ECG When compared with ECG of 09-MAY-2015 18:16, No significant change Confirmed by Robin Eisenberg ([id number]) on 03/19/2021 6:22:04 AM Referred By: REFERRED SELF Confirmed By:Robin Eisenberg
[2021-03-19] MEDS: HEPARIN SOD 5,000 UNIT/0.5 ML VIAL SQ SCH ×3 (07:53→20:44)
[2021-03-19 09:12] LABS: Hematocrit (blood only) 39.2 % (42-52); Hemoglobin 12.9 g/dL (14.0-18.0); Mean Corpuscular Hemoglobin 27.3 pg (25-34); Mean Corpuscular Hgb Conc 32.9 g/dL (32-36); Mean Corpuscular Volume 83.1 fL (80-100); Mean Platelet Volume 9.2 fL (7.4-10.4); Platelet Count 219 K/uL (130-400); RDW Coefficient of Variation 14.8 % (11.5-14.5); RDW Standard Deviation 45.7 fL (36.4-46.3); Red Blood Count 4.72 M/uL (4.7-6.1); White Blood Count 7.57 K/uL (4.8-10.8)
[2021-03-19 09:38] LABS: BUN Creatinine Ratio 21.5 (10-20); Calcium 7.8 mg/dl (8.5-10.1); Creatinine Clr Calc Pharmacy 74.2 ml/min; Est GFR (African American) 103.3 ml/min; Est GFR (Non-African American) 89.1 ml/min; Phosphorus 1.9 mg/dl (2.5-4.9); Potassium 3.6 mmol/L (3.5-5.1)
--- NOTE | 2021-03-19 12:04 | Medical Student Progress Note ---
Date of Service March 19, 2021 Assessment & Plan (1) Dysphagia: (1) Failure to thrive, dysphagia - 2 months of increasing difficulty with PO intake - pmh of tongue CA, laryngeal CA & total laryngectomy - PEG tube was placed successfully on 03/18 - Incredibly valuable speech evaluation granted a better understanding of pt condition - Pt has a stoma that is the only opening to his airway, he cannot aspirate - Liquid PO intake is safe and pt understands his limitations - Poor tolerance to initial tube feeding - possibly due to post-op sensitivity/inflammation - Plan to remain inpatient to build up tolerance to tube feedings - start 5ml/hr at 7pm on 03/19 (2) Laryngeal cancer - suspicion for recurrence of laryngeal cancer in the setting of worsening dysphagia and recent 15-20 lb weight loss - Neck CT: thickening in airway suspicious for neoplasm - should follow-up in the outpatient setting for a PET/CT Dysphagia type: unspecified Qualified Code(s): R13.10 - Dysphagia, unspecified Admission and Anticipated Discharge Date Admission Date: March 17, 2021 Supervising Attestation I personally examined the patient and verified all morrison points of history and exam, discussed case, and agree with decision making with Keanu Weller MS2 Really wants to go home, discussed the need to get him up to speed nutritionally and ensure that everything is set up for home. Later in discussion with case management, this may take longer than we would've anticipated, and nursing lets us know that he is not tolerating the tube feeds nearly as well as expected at first. On top of that, he is requiring higher FiO2 than he normally needs at home. Vitals noted, in general he is awake and alert. No distress. HEENT normocephalic atraumatic mucous membranes moist. Breathing unlabored no accessory muscle use good effort. Skin shows no rashes no pallor or icterus. Dysphagia/feeding disorder with failure to thrive, as well as probably acute moderate protein calorie malnutritionnow status post PEG, trying to titrate up tube feeds. Need to get him to goal and make sure he is get everything set up to succeed at home. We're certainly not there yet. Chronic respiratory failure/stoma status post initial laryngeal cancerongoing supportive care. Serial exams, I wonder how much of his new oxygen requirement is due to a worsening process versus closer monitoring and titration compared to what he is used to at home. DVT prophylaxisheparin subcu Otherwise as above Subjective Mr. Quarles is alert and well appearing this morning. 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 When I saw him, he had just had his PEG tube flushed and was being prepared to have his first tube feed at noon. He would like to go home, but will likely need to stay inpatient until tube feeds are well tolerated. Review of Systems Constitutional: as per Subjective / HPI; no fever, no chills and no weakness Respiratory: no dyspnea Cardiovascular: no chest pain Physical Exam Constitutional: well developed and well nourished; no acute distress Respiratory: normal respiratory effort Auscultation: + wheezes coarse breath sounds Cardiovascular: Rate/Rhythm: regular rate and regular rhythm Heart Sounds: normal S1 and normal S2; no gallop, no murmur and no cardiac rub Gastrointestinal (Abdomen): Percussion/Palpation: + abdomen tender PEG tube in place, no drainage, no signs of infection Results & Data ([facility]) Vital Signs (Past 12 Hours) Vital Signs Temp Pulse Resp BP Pulse Ox 03/19/21 07:37 36.7 C 73 18 158/74 H 92 03/19/21 00:00 37 C 79 20 167/75 H 95
[2021-03-19] MEDS: FIBERSOURCE HN 1.2 CAL 1000 ML BAG GT SCH (12:30)
[2021-03-19] MEDS: TUBE FEEDING WATER FLUSH GT SCH ×3 (12:30→20:44)
[2021-03-19] MEDS ORDERED: TUBE FEEDING WATER FLUSH GT SCH (16:00)
--- NOTE | 2021-03-19 18:12 | Billing Data ---
Date of Service March 19, 2021 Coding Level of Care Code 77507 Subseq Hosp Care Lvl 3
[2021-03-19] MEDS: LORazepam 1 MG/2 ML VIAL IV PRN (20:39)
[2021-03-20] MEDS: TUBE FEEDING WATER FLUSH GT SCH ×6 (00:42→20:44)
[2021-03-20] MEDS: MoRPHine SULFATE 4 MG/ML 1 ML CARP\\VIAL IV PRN ×8 (01:52→17:26)
[2021-03-20 07:19] LABS: Basophils # (auto) 0.01 K/uL (0-0.2); Basophils % (auto) 0.1 %; Eosinophils # (auto) 0.23 K/uL (0-0.5); Eosinophils % (auto) 3.2 %; Hematocrit (blood only) 39.4 % (42-52); Hemoglobin 13.2 g/dL (14.0-18.0); Immature Granulocytes # (auto) 0.01 K/uL (0.00-0.02); Immature Granulocytes % (auto) 0.1 %; Lymphocytes % (auto) 12.7 %; Mean Corpuscular Hemoglobin 26.9 pg (25-34); Mean Corpuscular Hgb Conc 33.5 g/dL (32-36); Mean Corpuscular Volume 80.4 fL (80-100); Mean Platelet Volume 8.9 fL (7.4-10.4); Monocytes # (auto) 0.89 K/uL (0.11-0.59); Monocytes % (auto) 12.5 %; Neutrophils # (auto) 5.06 K/uL (1.4-6.5); Neutrophils % (auto) 71.4 %; Platelet Count 214 K/uL (130-400); RDW Coefficient of Variation 14.6 % (11.5-14.5); RDW Standard Deviation 42.6 fL (36.4-46.3)
[2021-03-20 07:37] LABS: BUN Creatinine Ratio 15.9 (10-20); Calcium 8.3 mg/dl (8.5-10.1); Creatinine Clr Calc Pharmacy 79.8 ml/min; Est GFR (African American) 106.4 ml/min; Est GFR (Non-African American) 91.8 ml/min; Magnesium 1.9 mg/dl (1.8-2.4); Potassium 3.6 mmol/L (3.5-5.1)
[2021-03-20 07:40] LABS: Phosphorus 2.4 mg/dl (2.5-4.9)
[2021-03-20] MEDS: PROSOURCE NO CARB 30 ML/PKT GT SCH (07:52)
[2021-03-20] MEDS: HEPARIN SOD 5,000 UNIT/0.5 ML VIAL SQ SCH ×2 (07:52→20:45)
[2021-03-20] MEDS: FIBERSOURCE HN 1.2 CAL 1000 ML BAG GT SCH (12:16)
[2021-03-20] MEDS ORDERED: BACLOFEN 10 MG TAB PEG PRN (12:51)
[2021-03-20] MEDS ORDERED: hydrOXYzine HCl 10 MG TAB PEG PRN (12:51)
[2021-03-20] MEDS ORDERED: FAMOTIDINE SUSP 20 MG/2.5 ML UDP PO PRN (12:51)
[2021-03-20] MEDS ORDERED: MELATONIN 3 MG TAB PO PRN (12:51)
[2021-03-20] MEDS ORDERED: oxyCODONE HCL SOLN 5 MG/5 ML UDC GT PRN (12:51)
[2021-03-20] MEDS: GABAPENTIN 300 MG CAP PO SCH ×2 (13:45→20:46)
--- NOTE | 2021-03-20 18:39 | Hospitalist Progress Note ---
Date of Service March 20, 2021 Assessment & Plan (1) Failure to thrive: Related to laryngeal cancer/dysphagia/odynophagia. Now has PEG tube in placebut having difficulty titrating tube feeds up. He actually felt full after may be 20 mL was given, with basically no residual, and so we will either need to just give it more time for his PEG site to heal so that hopefully his stomach is less easily irritated, or try to recovery coach him through the need to get up to goal. Either way right now we are nowhere near her nutritional goals, and therefore we cannot look towards getting him home. (2) Throat pain: Related to laryngeal cancernow that PEG is in nonfunctionalresume home meds (3) Laryngeal cancer: Unfortunately appears recurrent. Outpatient follow-up (4) Chronic respiratory failure: With hypoxiacontinue trach collar over stoma (5) DVT prophylaxis: Heparin subcu (6) Discharge planning issues: FoleyInitially was going to get his PEG tube, get titrated up to speed on tube feeds, and then hopefully home. Unfortunately there have been added layers of complexity1 being that he is not tolerating the tube feeds yet, and we definitely need to but get him up to speed, the other being [facility]. Ultimately we would like to get him home though Admission and Anticipated Discharge Date Admission Date: March 17, 2021 Subjective neck pain -- since last bx. ongoing and fairly bad. also feels full really easily with tube feeds and keeps asking us to stop. not sure if visiting or not Review of Systems Review of Systems: All systems reviewed & are unremarkable except as noted in HPI & below Physical Exam Physical Exam: gen aaox3 pleasant nad heent nc at stoma noted breathing unlabored skin no rashes no pallor or icterus Results & Data Results & Data ([facility]) Vital Signs (Past 12 Hours) Vital Signs Temp Pulse Pulse Resp BP BP Pulse Ox 03/20/21 15:32 98.8 F 70 18 153/83 H 90 03/20/21 15:22 78 03/20/21 14:29 91 03/20/21 13:49 03/20/21 11:52 98.6 F 73 18 168/109 H 163/107 H 91 03/20/21 08:00 63 03/20/21 07:31 98.8 F 67 20 146/76 H 93 Pulse Ox 03/20/21 15:32 03/20/21 15:22 03/20/21 14:29 03/20/21 13:49 91 03/20/21 11:52 03/20/21 08:00 03/20/21 07:31 PG Care Time/CCT Total # of Minutes Spent Total Time Spent with Patient: Total time spent is greater than 50% in coordination of care (as documented) at patient's floor/unit and/or counseling patient: Coding Level of Care Code 54364 Subseq Hosp Care Lvl 3 Diagnoses Failure to thrive Throat pain R07.0 Laryngeal cancer C32.9 Chronic respiratory failure J96.10 DVT prophylaxis Z29.9 Discharge planning issues Z02.9
[2021-03-20] MEDS: MoRPHine SULFATE CR 60 MG TABCR PO SCH (19:22)
[2021-03-20] MEDS: DOCUSATE SODIUM 100 MG CAP PO SCH (20:29)
[2021-03-20] MEDS: ANUSOL SUPP 1 EA PR SCH (20:29)
[2021-03-20] MEDS: SENNOSIDES 8.8 MG/5 ML UDC PEG SCH (20:29)
[2021-03-20] MEDS: CIPRO 0.3%/DEXAMETHASONE 0.1% OTIC SUSP 7.5ML OTR SCH (20:45)
[2021-03-20] MEDS: MIRTAZAPINE SOLTAB 15 MG PO SCH (20:46)
[2021-03-20] MEDS: QUEtiapine FUMARATE 300 MG TABLET PO SCH (20:46)
[2021-03-20] MEDS: ONDANSETRON ORAL SOLN 0.8 MG/1 ML PO SCH (20:46)
[2021-03-20] MEDS: LORazepam 1 MG/2 ML VIAL IV PRN (20:56)
[2021-03-20] MEDS ORDERED: ONDANSETRON 8 MG/10 ML UDP GT SCH (21:00)
[2021-03-21] MEDS: MoRPHine SULFATE CR 60 MG TABCR PO SCH ×4 (00:14→21:01)
[2021-03-21] MEDS: TUBE FEEDING WATER FLUSH GT SCH ×6 (00:14→21:00)
[2021-03-21 06:33] LABS: BUN Creatinine Ratio 12.1 (10-20); Calcium 8.3 mg/dl (8.5-10.1); Creatinine Clr Calc Pharmacy 39.9 ml/min; Est GFR (African American) 50.6 ml/min; Est GFR (Non-African American) 43.6 ml/min; Magnesium 2.1 mg/dl (1.8-2.4); Phosphorus 3.8 mg/dl (2.5-4.9); Potassium 3.3 mmol/L (3.5-5.1)
[2021-03-21] MEDS: ONDANSETRON ORAL SOLN 0.8 MG/1 ML PO SCH ×2 (08:10→20:58)
[2021-03-21] MEDS: GABAPENTIN 300 MG CAP PO SCH ×3 (08:10→20:58)
[2021-03-21] MEDS: CYANOCOBALAMIN 500 MCG TABLET (VITAMIN B-12) PEG SCH (08:11)
[2021-03-21] MEDS: DOCUSATE SODIUM 100 MG CAP PO SCH ×2 (08:11→20:59)
[2021-03-21] MEDS: SERTRALINE HCL 100 MG TABLET PEG SCH (08:12)
[2021-03-21] MEDS: SENNOSIDES 8.8 MG/5 ML UDC PEG SCH ×2 (08:13→21:02)
[2021-03-21] MEDS: CIPRO 0.3%/DEXAMETHASONE 0.1% OTIC SUSP 7.5ML OTR SCH ×3 (08:13→20:59)
[2021-03-21] MEDS: PROSOURCE NO CARB 30 ML/PKT GT SCH (08:14)
[2021-03-21] MEDS: HEPARIN SOD 5,000 UNIT/0.5 ML VIAL SQ SCH ×2 (08:15→20:59)
[2021-03-21] MEDS: MoRPHine SULFATE 4 MG/ML 1 ML CARP\\VIAL IV PRN ×2 (08:30→13:13)
[2021-03-21] MEDS ORDERED: SODIUM CHLORIDE 0.9% 1000ML 500 ML IV ONE (08:47)
[2021-03-21] MEDS: D5W AND 1/2NSS + 20MEQ KCL 20 MEQ/1,000 ML BAG IV SCH ×2 (10:28→20:42)
--- NOTE | 2021-03-21 10:36 | XRay Report ---
GASTROSTOMY TUBE STUDY WITH OPTIRAY CLINICAL HISTORY: extremely early satiety COMPARISON STUDY: CT of the abdomen and pelvis April 12, 2019. TECHNIQUE: Initially, appetizer packer KUB was obtained. 80 cc of Optiray 300 was then injected through the alphonso rostomy tube and subsequent KUBs were obtained. FINDINGS: Head Waiter/Waitress Banquet image demonstrates normal bowel gas pattern with gastrostomy tube projecting over the gastric antrum. There was opacification of the stomach following gastrostomy tube injection. No alphonso frank emptying was noted at 15 minutes. No extraluminal contrast was identified. At 1 hour, significant gastric emptying was noted with contrast throughout the small bowel. Residual contrast within the ga stric fundus was noted. Caliber of the opacified small bowel is normal. IMPRESSION: 1. Appropriately positioned gastrostomy tube. 2. No evidence for complete gastric outlet obstruction as contrast noted throughout small bowel on t he 1 hour image. Possible mild delayed gastric emptying with no small bowel contrast noted at 15 amparo michael. ACT 112: Negative or not required by law. Electronically signed by: Milan Kelly M.D. 03/21/2021 10:34 AM
[2021-03-21] MEDS: FIBERSOURCE HN 1.2 CAL 1000 ML BAG GT SCH (13:41)
--- NOTE | 2021-03-21 16:57 | Hospitalist Progress Note ---
Date of Service March 21, 2021 Assessment & Plan (1) Failure to thrive: Related to laryngeal cancer/dysphagia/odynophagia. Now has PEG tube in placeinitially having difficulty titrating tube feeds up due to intolerability. Now he is tolerating better, and hopefully we can titrate up to a goal of 65 over the next may be 24 hours. Follow labs for any evidence of refeeding, but at least at the bedside right now he looks good. Once he is up to goal, the goal next would be to transition him to bolus feedingwhich probably could be done as an outpatient given that he has had a PEG tube before and is familiar with the process. The added level of difficulty is that [facility] in getting his tube feedsalthough if we know that he is up to speed nutritionally, is able to tolerate, and that his "appropriate" formula would be arriving soon, it might be reasonable to reduce his risk of prolonged hospitalization by having him go home with an outlined regimen of sagi-eqs-pfworzs products such as boost/boost plus that would at least get him to his calorie goals until the true tube feeds arrive. (2) Throat pain: Related to laryngeal cancernow that PEG is in nonfunctionalresumed home meds but then last night he was a bit sedated. I wonder how much she was actually able to get his full regimen at homereduced his MS Contin from every 6 hours to twice daily, at least as of this afternoon his pain appears to be reasonably well controlledwe will need to continue to follow and titrate. (3) Laryngeal cancer: Unfortunately appears recurrent. Outpatient follow-upthey do expressed frustration with the [place] system, and would like to see providers outside of the [place] system. They request a referral to [facility]. We also discussed the unfortunate nature of recurrent head and neck cancers, and discussed that it is very worthwhile for him to gather information and for them to talk and think about options, but that it is also quite reasonable to consider a more palliative/hospice route if proposed treatment plans sound intolerable or unacceptable as it relates to risk/benefit. (4) Chronic respiratory failure: With hypoxiacontinue trach collar over stomamore at baseline level of oxygen now. (5) DVT prophylaxis: Heparin subcu (6) Discharge planning issues: Goal is getting home. Need to be up to goal with tube feeds with no refeeding first, would definitely like to have his proper tube feed formula set up for home first as well, although if this is a significant delay, as above noted we could probably at least bridge with some form of tube nutrition until his true formula arrives. (7) ARF (acute renal failure): Almost certainly from dehydration. IV fluids. Repeat basic metabolic panel tomorrow, tolerating tube feeds better now too. Admission and Anticipated Discharge Date Admission Date: March 17, 2021 Subjective Feeling better. Tolerating tube feedsat least at 20 an hour. No other acute complaints at this time. present at the bedside, updated her as well. Review of Systems Review of Systems: All systems reviewed & are unremarkable except as noted in HPI & below Physical Exam Physical Exam: In general he is awake and alert pleasant no distress. HEENT normocephalic atraumatic mucous membranes moist. Breathing unlabored no accessory muscle use good effort. Skin shows no rashes no pallor or icterus. No focal neuro deficits. Results & Data Results & Data ([facility]) Vital Signs (Past 12 Hours) Vital Signs Temp Pulse Pulse Resp BP Pulse Ox 03/21/21 15:06 78 03/21/21 14:46 98.2 F 130 H 18 95/65 L 96 03/21/21 11:16 97.9 F 73 16 87/57 L 91 03/21/21 07:48 98.4 F 73 16 98/61 L 93 03/21/21 07:11 76 03/21/21 05:47 14 87/49 L 94 PG Care Time/CCT Total # of Minutes Spent Total Time Spent with Patient: Total time spent is greater than 50% in coordination of care (as documented) at patient's floor/unit and/or counseling patient: Coding Level of Care Code 66194 Subseq Hosp Care Lvl 3 Diagnoses Failure to thrive Throat pain R07.0 Laryngeal cancer C32.9 Chronic respiratory failure J96.10 DVT prophylaxis Z29.9 Discharge planning issues Z02.9 ARF (acute renal failure) N17.9
[2021-03-21] MEDS: QUEtiapine FUMARATE 300 MG TABLET PO SCH (20:59)
[2021-03-21] MEDS: ANUSOL SUPP 1 EA PR SCH (20:59)
[2021-03-21] MEDS: MIRTAZAPINE SOLTAB 15 MG PO SCH (21:00)
[2021-03-22] MEDS: TUBE FEEDING WATER FLUSH GT SCH ×7 (00:12→23:28)
[2021-03-22] MEDS: D5W AND 1/2NSS + 20MEQ KCL 20 MEQ/1,000 ML BAG IV SCH (05:55)
[2021-03-22] MEDS: MoRPHine SULFATE 4 MG/ML 1 ML CARP\\VIAL IV PRN ×5 (06:17→21:39)
[2021-03-22 08:24] LABS: Calcium 7.9 mg/dl (8.5-10.1); Creatinine Clr Calc Pharmacy 33.1 ml/min; Est GFR (African American) 40.3 ml/min; Est GFR (Non-African American) 34.8 ml/min; Magnesium 2.1 mg/dl (1.8-2.4); Phosphorus 3.8 mg/dl (2.5-4.9); Potassium 3.9 mmol/L (3.5-5.1)
[2021-03-22] MEDS: PROSOURCE NO CARB 30 ML/PKT GT SCH (09:02)
[2021-03-22] MEDS: SERTRALINE HCL 100 MG TABLET PEG SCH (09:02)
[2021-03-22] MEDS: GABAPENTIN 300 MG CAP PO SCH ×3 (09:03→21:38)
[2021-03-22] MEDS: SENNOSIDES 8.8 MG/5 ML UDC PEG SCH ×2 (09:03→21:38)
[2021-03-22] MEDS: HEPARIN SOD 5,000 UNIT/0.5 ML VIAL SQ SCH ×2 (09:04→21:40)
[2021-03-22] MEDS: CYANOCOBALAMIN 500 MCG TABLET (VITAMIN B-12) PEG SCH (09:04)
[2021-03-22] MEDS: CIPRO 0.3%/DEXAMETHASONE 0.1% OTIC SUSP 7.5ML OTR SCH ×2 (09:04→21:38)
[2021-03-22] MEDS: ONDANSETRON ORAL SOLN 0.8 MG/1 ML PO SCH ×2 (09:09→21:41)
[2021-03-22] MEDS: MoRPHine SULFATE CR 60 MG TABCR PO SCH ×2 (09:09→21:41)
[2021-03-22] MEDS: DOCUSATE SODIUM SYRUP 100 MG/10 ML UDC PEG SCH ×2 (10:52→21:38)
[2021-03-22] MEDS: D5W AND NSS 1,000 ML IV SCH ×2 (12:10→21:39)
[2021-03-22] MEDS: FIBERSOURCE HN 1.2 CAL 1000 ML BAG GT SCH (12:34)
[2021-03-22] MEDS: DOCUSATE SODIUM 100 MG CAP PO SCH (13:29)
--- NOTE | 2021-03-22 21:13 | Hospitalist Progress Note ---
Date of Service March 22, 2021 Assessment & Plan (1) Failure to thrive: Related to laryngeal cancer/dysphagia/odynophagia. Now has PEG tube in placeinitially having difficulty titrating tube feeds up due to intolerability. Now he is tolerating better, and hopefully we can titrate up to a goal of 65 over the next may be 24 hours. -His tube feeds were not titrated today-changed order to increase by 5 mL/h every 4 hours to the goal of 65 mL's per hour -Follow labs for any evidence of refeeding-none so far electrolytes are acceptable Worsening acute kidney injury today-change fluids to D5 normal saline at 100 mL/h Follow BMP, magnesium, phosphorus, LFTs -Continue Prosource 30 him pills daily and sterile water/free water flushes -Once he is up to goal, the goal next would be to transition him to bolus feedingwhich probably could be done as an outpatient given that he has had a PEG tube before and is familiar with the process. The added level of difficulty is that the [place] unfortunately has very slow turnaround time in getting his tube feedsalthough if we know that he is up to speed nutritionally, is able to tolerate, and that his "appropriate" formula would be arriving soon, it might be reasonable to reduce his risk of prolonged hospitalization by having him go home with an outlined regimen of coaq-arh-kioxjbr products such as boost/boost plus that would at least get him to his calorie goals until the true tube feeds arrive. At this point, as per case management, he might get his tube feed supplies by Monday of this week (2) Throat pain: Related to laryngeal cancernow that PEG is in and functionalresumed home meds reduced his MS Contin from every 6 hours to twice daily due to excessive sedation -continue IV morphine prn -Continue oxycodone as needed and gabapentin 300 mg p.o. 3 times daily (3) Laryngeal cancer: Unfortunately appears recurrent. Outpatient follow-up needed [facility] Patient has expressed frustration with the [place] system, and would like to see providers outside of the [facility] system. They request a referral to [facility]. We also discussed the unfortunate nature of recurrent head and neck cancers, and discussed that it is very worthwhile for him to gather information and for them to talk and think about options, but that it is also quite reasonable to consider a more palliative/hospice route if proposed treatment plans sound intolerable or unacceptable as it relates to risk/benefit. -With possible pulmonary nodule on x-ray Needs PET/CT scan as an outpatient (4) ARF (acute renal failure): Acute kidney injury worsens today with creatinine up to 1.93 Almost certainly from dehydration. -Change fluids to D5 normal saline at 100 mL/h Follow BMP in the morning Continue tube feeds and increase to goal and then stop fluids (5) Chronic respiratory failure: With hypoxiacontinue trach collar over stoma at nighttimemore at baseline level of oxygen now. (6) Depression: Stable Continue home medications of sertraline, Seroquel, hydroxyzine as needed, mirtazapine (7) Pulmonary nodule: 6 mm nodule seen in the right upper lobe on chest x-ray Needs PET CT scan as an outpatient for laryngeal/tongue cancer (8) DVT prophylaxis: Heparin subcu (9) Discharge planning issues: Goal is getting home. Need to be up to goal with tube feeds with no refeeding first, would definitely like to have his proper tube feed formula set up for home first as well, although if this is a significant delay, as above noted we could probably at least bridge with some form of tube nutrition until his true formula arrives. Case management involved Admission and Anticipated Discharge Date Admission Date: March 17, 2021 Subjective Patient having pain in the back of his tongue and is requesting IV morphine. Otherwise, he does report feeling full mobility but is having minimal residuals with tube feeds. His tube feeds are up to 40 mL/h. Telemetry with normal sinus rhythm, PVCs, rates in the 70s to 90s Review of Systems Review of Systems: All systems reviewed & are unremarkable except as noted in HPI & below Physical Exam Constitutional: WD/WN, vitals as above Eyes: + anicteric sclerae ENMT: Ears: no hearing impairment Mouth: no tongue abnormality (Cannot visualize mass on back of tongue) Neck: trachea midline, no thyromegaly Respiratory: normal respiratory effort, lungs clear to auscultation Cardiovascular: RRR, no murmur, no edema Chest (Breasts): Chest: normal inspection of chest Gastrointestinal (Abdomen): normal bowel sounds, soft, nontender, no hepatosplenomegaly Inspection/Auscultation: + abdomen abnormal to inspection (PEG tube in place) Musculoskeletal: Extremities: extremities normal to inspection; no cyanosis and no clubbing Skin: no rashes, warm and dry Neurologic: moves all extremities and awake; no focal motor deficits Psychiatric: A+Ox3, euthymic affect Lymphatic: no lymphedema Results & Data Results & Data ([facility]) Vital Signs (Past 12 Hours) Vital Signs Temp Pulse Pulse Resp BP BP Pulse Ox 03/22/21 19:22 36.8 C 81 18 111/66 94 03/22/21 16:00 36.7 C 72 18 105/66 95 03/22/21 14:20 99 H 03/22/21 11:41 36.7 C 79 18 120/76 92 Laboratory Results 03/22/21 Range/Units 07:36 Sodium 137 (136-145) mmol/L Potassium 3.9 D (3.5-5.1) mmol/L Chloride 104 (98-107) mmol/L Carbon Dioxide 26 (21-32) mmol/L Anion Gap 7.0 (3-11) BUN 27 H (7-18) mg/dl Creatinine 1.93 H D (0.6-1.4) mg/dl Est Cr Clr Drug Dosing 33.1 ml/min Est GFR ( Amer) 40.3 ml/min Est GFR (Non-Af Amer) 34.8 ml/min BUN/Creatinine Ratio 14.0 (10-20) Glucose 129 H (70-99) mg/dl Calcium 7.9 L (8.5-10.1) mg/dl Phosphorus 3.8 (2.5-4.9) mg/dl Magnesium 2.1 (1.8-2.4) mg/dl PG Care Time/CCT Total # of Minutes Spent Total Time Spent with Patient: Total time spent is greater than 50% in coordination of care (as documented) at patient's floor/unit and/or counseling patient: Coding Level of Care Code 73783 Subseq Hosp Care Lvl 3 Diagnoses Failure to thrive Throat pain R07.0 Laryngeal cancer C32.9 ARF (acute renal failure) N17.9 Chronic respiratory failure J96.10 Depression F32.9 Pulmonary nodule R91.1 DVT prophylaxis Z29.9 Discharge planning issues Z02.9
[2021-03-22] MEDS: MIRTAZAPINE SOLTAB 15 MG PO SCH (21:38)
[2021-03-22] MEDS: QUEtiapine FUMARATE 300 MG TABLET PO SCH (21:38)
[2021-03-22] MEDS: ANUSOL SUPP 1 EA PR SCH (21:40)
[2021-03-22] MEDS: LORazepam 1 MG/2 ML VIAL IV PRN (21:59)
[2021-03-23] MEDS: MoRPHine SULFATE 4 MG/ML 1 ML CARP\\VIAL IV PRN ×4 (03:19→14:24)
[2021-03-23] MEDS: TUBE FEEDING WATER FLUSH GT SCH ×6 (03:20→23:30)
[2021-03-23] MEDS: D5W AND NSS 1,000 ML IV SCH (08:12)
[2021-03-23] MEDS: HEPARIN SOD 5,000 UNIT/0.5 ML VIAL SQ SCH ×2 (08:13→19:41)
[2021-03-23 08:51] LABS: Basophils # (auto) 0.02 K/uL (0-0.2); Basophils % (auto) 0.4 %; Eosinophils % (auto) 5.5 %; Hematocrit (blood only) 36.7 % (42-52); Hemoglobin 11.6 g/dL (14.0-18.0); Immature Granulocytes # (auto) 0.02 K/uL (0.00-0.02); Immature Granulocytes % (auto) 0.4 %; Lymphocytes # (auto) 0.78 K/uL (1.2-3.4); Lymphocytes % (auto) 14.2 %; Mean Corpuscular Hemoglobin 26.9 pg (25-34); Mean Corpuscular Hgb Conc 31.6 g/dL (32-36); Mean Corpuscular Volume 85.2 fL (80-100); Mean Platelet Volume 9.1 fL (7.4-10.4); Monocytes % (auto) 10.9 %; Neutrophils # (auto) 3.76 K/uL (1.4-6.5); Neutrophils % (auto) 68.6 %; Platelet Count 169 K/uL (130-400); RDW Coefficient of Variation 15.1 % (11.5-14.5); RDW Standard Deviation 47.7 fL (36.4-46.3); Red Blood Count 4.31 M/uL (4.7-6.1); White Blood Count 5.48 K/uL (4.8-10.8)
[2021-03-23] MEDS: SERTRALINE HCL 100 MG TABLET PEG SCH (08:55)
[2021-03-23] MEDS: PROSOURCE NO CARB 30 ML/PKT GT SCH (08:55)
[2021-03-23] MEDS: SENNOSIDES 8.8 MG/5 ML UDC PEG SCH ×2 (08:55→19:41)
[2021-03-23] MEDS: ONDANSETRON ORAL SOLN 0.8 MG/1 ML PO SCH ×2 (08:55→19:41)
[2021-03-23] MEDS: CIPRO 0.3%/DEXAMETHASONE 0.1% OTIC SUSP 7.5ML OTR SCH ×2 (08:56→19:40)
[2021-03-23] MEDS: DOCUSATE SODIUM SYRUP 100 MG/10 ML UDC PEG SCH ×2 (08:56→19:40)
[2021-03-23] MEDS: CYANOCOBALAMIN 500 MCG TABLET (VITAMIN B-12) PEG SCH (08:56)
[2021-03-23] MEDS: GABAPENTIN 300 MG CAP PO SCH ×3 (08:57→19:40)
[2021-03-23 09:21] LABS: Albumin Level 2.3 gm/dl (3.4-5.0); BUN Creatinine Ratio 15.6 (10-20); Calcium 8.1 mg/dl (8.5-10.1); Creatinine Clr Calc Pharmacy 53.6 ml/min; Est GFR (African American) 72.3 ml/min; Est GFR (Non-African American) 62.4 ml/min; Magnesium 1.9 mg/dl (1.8-2.4); Potassium 3.9 mmol/L (3.5-5.1)
[2021-03-23 09:25] LABS: Albumin Globulin Ratio 0.7 (0.9-2); Bilirubin,Total 0.4 mg/dl (0.2-1); Globulin 3.5 gm/dl (2.5-4.0); Phosphorus 1.9 mg/dl (2.5-4.9); Total Protein 5.8 gm/dl (6.4-8.2)
[2021-03-23] MEDS: MoRPHine SULFATE CR 60 MG TABCR PO SCH (09:25)
[2021-03-23] MEDS ORDERED: POTASSIUM PHOS 3 MMOL/1 ML INFUSION IV STA (09:42)
[2021-03-23] MEDS ORDERED: POTASSIUM PHOSPHATE 15 MMOL in SODIUM CHLORIDE 0.9% 250 ML IV ONE (10:15)
[2021-03-23] MEDS: MoRPHine SULFATE 5 MG/0.25 ML UDP GT SCH ×2 (10:31→14:14)
[2021-03-23] MEDS: FIBERSOURCE HN 1.2 CAL 1000 ML BAG GT SCH (11:49)
--- NOTE | 2021-03-23 14:11 | Hospitalist Progress Note ---
Date of Service March 23, 2021 Assessment & Plan (1) Failure to thrive: Related to laryngeal cancer/dysphagia/odynophagia. Now has PEG tube in placeinitially having difficulty titrating tube feeds up due to intolerability. Now he is tolerating better, and almost up to goal of 65 mL/hr -replace phos today -Follow labs for any evidence of refeeding-doing ok, phos mildly low, AST mild elevation SIERRA resolved and almost to goal on TFs--> dc IVFs Follow BMP, magnesium, phosphorus, LFTs -Continue Prosource 30 him pills daily and sterile water/free water flushes -Once he is up to goal, the goal next would be to transition him to bolus feedingwhich probably could be done as an outpatient given that he has had a PEG tube before and is familiar with the process. The added level of difficulty is that the [place] unfortunately has very slow turnaround time in getting his tube feedsalthough if we know that he is up to speed nutritionally, is able to tolerate, and that his "appropriate" formula would be arriving soon At this point, as per case management, he might get his tube feed supplies by Monday of this week (2) Throat pain: Related to laryngeal cancernow that PEG is in and functionalresumed home meds MS Contin cannot be crushed through [facility] an dhas been dcd -start Roxanol and titrate up to 10mg po q4h scheduled dose for pain -continue IV morphine prn -dc oxycodone -continue gabapentin 300 mg 3 times daily (3) Laryngeal cancer: Unfortunately appears recurrent. Outpatient follow-up needed [facility] Patient has expressed frustration with the [place] system, and would like to see providers outside of the [place] system. They request a referral to [facility]. We also discussed the unfortunate nature of recurrent head and neck cancers, and discussed that it is very worthwhile for him to gather information and for them to talk and think about options, but that it is also quite reasonable to consider a more palliative/hospice route if proposed treatment plans sound intolerable or unacceptable as it relates to risk/benefit. -With possible pulmonary nodule on x-ray Needs PET/CT scan as an outpatient -request records from [facility] for biopsy results and ENT notes (4) ARF (acute renal failure): Acute kidney injury with creatinine up to 1.93 and now resolved back to normal with IVF hydration Almost certainly from dehydration. dc IVFs Follow BMP in the morning Continue tube feeds and increase to goal (5) Chronic respiratory failure: With hypoxiacontinue trach collar over stoma at nighttimemore at baseline level of oxygen now. (6) Depression: Stable but at risk for worsening as per Continue home medications of sertraline, Seroquel, hydroxyzine as needed, mirtazapine recommend outpt f/u with Psychiatry as he stopped going as per (7) Pulmonary nodule: 6 mm nodule seen in the right upper lobe on chest x-ray Needs PET CT scan as an outpatient for laryngeal/tongue cancer (8) DVT prophylaxis: Heparin subcu (9) Discharge planning issues: Goal is getting home. Need to be up to goal with tube feeds with no refeeding first, would definitely like to have his proper tube feed formula set up for home first as well, although if this is a significant delay, as above noted we could probably at least bridge with some form of tube nutrition until his true formula arrives. Case management involved Hopeful to dc to home in next 1-2 days Admission and Anticipated Discharge Date Admission Date: March 17, 2021 Subjective Pt converted to po liquid Roxanol today as MS Contin cannot be crushed through [facility]. He was started at 5mg and is still c/o significant tongue pain. Otherwise, no SOB. No other pains. He is tolerating tube feeds well and almost at goal. I talked to his on the phone. SHe reports pt has had depression and issues with frequent nightmares with screaming in his sleep for years. She worries he is getting depressed again. He has not yet had a PET scan as an outpt He is moving his bowels. Tele with NSR, rates 70-80s Review of Systems Review of Systems: All systems reviewed & are unremarkable except as noted in HPI & below Physical Exam Constitutional: WD/WN, vitals as above Eyes: + anicteric sclerae ENMT: Ears: no hearing impairment Mouth: no tongue abnormality (Cannot visualize mass on back of tongue) Neck: trachea midline, no thyromegaly Respiratory: normal respiratory effort, lungs clear to auscultation Cardiovascular: RRR, no murmur, no edema Chest (Breasts): Chest: normal inspection of chest Gastrointestinal (Abdomen): normal bowel sounds, soft, nontender, no hepatosplenomegaly Inspection/Auscultation: + abdomen abnormal to inspection (PEG tube in place) Musculoskeletal: Extremities: extremities normal to inspection; no cyanosis and no clubbing Skin: no rashes, warm and dry Neurologic: moves all extremities and awake; no focal motor deficits Lymphatic: no lymphedema Results & Data Results & Data ([facility]) Vital Signs (Past 12 Hours) Vital Signs Temp Pulse Pulse Resp BP BP Pulse Ox 03/23/21 12:00 37 C 77 18 118/68 90 03/23/21 07:40 36.9 C 75 18 121/68 92 03/23/21 07:23 79 03/23/21 04:10 37 C 83 18 105/60 94 Laboratory Results 03/23/21 03/23/21 Range/Units 08:20 08:20 WBC 5.48 (4.8-10.8) K/uL RBC 4.31 L (4.7-6.1) M/uL Hgb 11.6 L (14.0-18.0) g/dL Hct 36.7 L (42-52) % MCV 85.2 (80-100) fL MCH 26.9 (25-34) pg MCHC 31.6 L (32-36) g/dL RDW Std Deviation 47.7 H (36.4-46.3) fL RDW Coeff of [place] 15.1 H (11.5-14.5) % Plt Count 169 (130-400) K/uL MPV 9.1 (7.4-10.4) fL Immature Gran % (Auto) 0.4 % Neut % (Auto) 68.6 % Lymph % (Auto) 14.2 % [place] % (Auto) 10.9 % Eos % (Auto) 5.5 % Baso % (Auto) 0.4 % Neut # (Auto) 3.76 (1.4-6.5) K/uL Lymph # (Auto) 0.78 L (1.2-3.4) K/uL [place] # (Auto) 0.60 H (0.11-0.59) K/uL Eos # (Auto) 0.30 (0-0.5) K/uL Baso # (Auto) 0.02 (0-0.2) K/uL Immature Gran # (Auto) 0.02 (0.00-0.02) K/uL Sodium 142 (136-145) mmol/L Potassium 3.9 (3.5-5.1) mmol/L Chloride 111 H (98-107) mmol/L Carbon Dioxide 25 (21-32) mmol/L Anion Gap 6.0 (3-11) BUN 19 H (7-18) mg/dl Creatinine 1.19 D (0.6-1.4) mg/dl Est Cr Clr Drug Dosing 53.6 ml/min Est GFR ( Amer) 72.3 ml/min Est GFR (Non-Af Amer) 62.4 ml/min BUN/Creatinine Ratio 15.6 (10-20) Glucose 124 H (70-99) mg/dl Calcium 8.1 L (8.5-10.1) mg/dl Phosphorus 1.9 L D (2.5-4.9) mg/dl Magnesium 1.9 (1.8-2.4) mg/dl Total Bilirubin 0.4 (0.2-1) mg/dl AST 41 H (15-37) U/L ALT 45 (12-78) U/L Alkaline Phosphatase 113 (45-117) U/L Total Protein 5.8 L (6.4-8.2) gm/dl Albumin 2.3 L (3.4-5.0) gm/dl Globulin 3.5 (2.5-4.0) gm/dl Albumin/Globulin Ratio 0.7 L (0.9-2) PG Care Time/CCT Total # of Minutes Spent Total Time Spent with Patient: Total time spent is greater than 50% in coordination of care (as documented) at patient's floor/unit and/or counseling patient: Coding Level of Care Code 39293 Subseq Hosp Care Lvl 2 Diagnoses Failure to thrive Throat pain R07.0 Laryngeal cancer C32.9 ARF (acute renal failure) N17.9 Chronic respiratory failure J96.10 Depression F32.9 Pulmonary nodule R91.1 DVT prophylaxis Z29.9 Discharge planning issues Z02.9
[2021-03-23] MEDS: MoRPHine SULFATE 10 MG/0.5 ML UDP GT SCH ×3 (16:03→23:29)
[2021-03-23] MEDS: ANUSOL SUPP 1 EA PR SCH (19:40)
[2021-03-23] MEDS: MIRTAZAPINE SOLTAB 15 MG PO SCH (19:41)
[2021-03-23] MEDS: LORazepam 1 MG/2 ML VIAL IV PRN (19:41)
[2021-03-23] MEDS: QUEtiapine FUMARATE 300 MG TABLET PO SCH (19:41)
[2021-03-24] MEDS: MoRPHine SULFATE 10 MG/0.5 ML UDP GT SCH ×5 (03:43→20:08)
[2021-03-24] MEDS: FIBERSOURCE HN 1.2 CAL 1000 ML BAG GT SCH ×3 (03:43→20:08)
[2021-03-24] MEDS: TUBE FEEDING WATER FLUSH GT SCH ×5 (03:43→20:08)
[2021-03-24 08:49] LABS: Albumin Level 2.5 gm/dl (3.4-5.0); BUN Creatinine Ratio 11.8 (10-20); Calcium 8.4 mg/dl (8.5-10.1); Creatinine Clr Calc Pharmacy 54.1 ml/min; Est GFR (African American) 73.1 ml/min; Magnesium 1.9 mg/dl (1.8-2.4); Potassium 3.7 mmol/L (3.5-5.1)
[2021-03-24 08:52] LABS: Albumin Globulin Ratio 0.7 (0.9-2); Bilirubin,Total 0.2 mg/dl (0.2-1); Globulin 3.7 gm/dl (2.5-4.0); Phosphorus 2.4 mg/dl (2.5-4.9); Total Protein 6.2 gm/dl (6.4-8.2)
[2021-03-24] MEDS: DOCUSATE SODIUM SYRUP 100 MG/10 ML UDC PEG SCH ×2 (09:13→20:09)
[2021-03-24] MEDS: PROSOURCE NO CARB 30 ML/PKT GT SCH (09:13)
[2021-03-24] MEDS: GABAPENTIN 300 MG CAP PO SCH ×3 (09:14→20:10)
[2021-03-24] MEDS: ONDANSETRON ORAL SOLN 0.8 MG/1 ML PO SCH ×2 (09:14→20:09)
[2021-03-24] MEDS: SERTRALINE HCL 100 MG TABLET PEG SCH (09:14)
[2021-03-24] MEDS: CIPRO 0.3%/DEXAMETHASONE 0.1% OTIC SUSP 7.5ML OTR SCH ×2 (09:15→20:08)
[2021-03-24] MEDS: CYANOCOBALAMIN 500 MCG TABLET (VITAMIN B-12) PEG SCH (09:15)
[2021-03-24] MEDS: SENNOSIDES 8.8 MG/5 ML UDC PEG SCH ×2 (09:15→20:09)
[2021-03-24] MEDS: HEPARIN SOD 5,000 UNIT/0.5 ML VIAL SQ SCH ×2 (09:16→20:10)
[2021-03-24] MEDS ORDERED: POTASSIUM PHOS 3 MMOL/1 ML INFUSION IV STA (10:06)
[2021-03-24] MEDS ORDERED: POTASSIUM PHOSPHATE 15 MMOL in SODIUM CHLORIDE 0.9% 250 ML IV ONE (10:30)
[2021-03-24] MEDS: MoRPHine SULFATE 4 MG/ML 1 ML CARP\\VIAL IV PRN (14:02)
--- NOTE | 2021-03-24 16:54 | Hospitalist Progress Note ---
Date of Service March 24, 2021 Assessment & Plan (1) Failure to thrive: Related to laryngeal cancer/dysphagia/odynophagia. Now has PEG tube in placeinitially having difficulty titrating tube feeds up due to intolerability. Now he is tolerating well and is at the goal of 65 mL/hr -replace phos today with potassium phosphorus -Follow labs for any evidence of refeeding-doing ok, phos mildly low, AST mild elevation now resolved SIERRA resolved and have since discontinued the IV fluids Follow BMP, magnesium, phosphorus, LFTs again in the morning -Continue Prosource 30 mL daily and sterile water/free water flushes Arrangements have been made through [employer]-he will have 6 cans a day of Jevity 1.2+30 mL of Prosource and should use 60 mL of free water flushes before and after each can feed (2) Throat pain: Related to laryngeal cancernow that PEG is in and functionalresumed home meds MS Contin cannot be crushed through GT an dhas been dcd -start Roxanol and titrate up again to 15 mg po q4h scheduled dose for pain -continue IV morphine prn breakthrough pain -dcd oxycodone -continue gabapentin 300 mg 3 times daily (3) Laryngeal cancer: Unfortunately appears recurrent. Outpatient follow-up needed [facility]RLANDA [facility], and would like to see providers outside of the [place] system. They request a referral to [facility]. We also discussed the unfortunate nature of recurrent head and neck cancers, and discussed that it is very worthwhile for him to gather information and for them to talk and think about options, but that it is also quite reasonable to consider a more palliative/hospice route if proposed treatment plans sound intolerable or unacceptable as it relates to risk/benefit. -With possible pulmonary nodule on x-ray Needs PET/CT scan as an outpatient -request records from [facility] for biopsy results and ENT notes-have not received these yet (4) ARF (acute renal failure): Acute kidney injury with creatinine up to 1.93 and now resolved back to normal with IVF hydration Almost certainly from dehydration. Follow BMP in the morning Continue tube feeds and free water flushes (5) Chronic respiratory failure: With hypoxiacontinue trach collar over stoma at nighttimemore at baseline level of oxygen now. (6) Depression: Stable but at risk for worsening as per Continue home medications of sertraline, Seroquel, hydroxyzine as needed, mirtazapine recommend outpt f/u with Psychiatry as he stopped going as per (7) Pulmonary nodule: 6 mm nodule seen in the right upper lobe on chest x-ray Needs PET CT scan as an outpatient for laryngeal/tongue cancer (8) Hypophosphatemia: Replaced with potassium phosphorus Follow level in the morning (9) DVT prophylaxis: Heparin subcu (10) Discharge planning issues: As above, cannot feeds for tube feeds are being delivered late tonight and things will be in place for him to go home tomorrow with tube feeds Needs close follow-up with ENT as an outpatient and PET/CT scan Plan for discharge home tomorrow morning Admission and Anticipated Discharge Date Admission Date: March 17, 2021 Subjective Patient reports still having a lot of pain in back and is throat despite increase to 10 mg of Roxanol. Otherwise denies any other problems. Is having loose stools from tube feeds, no abdominal pain. Discussed his care with his at the bedside. Review of Systems Review of Systems: All systems reviewed & are unremarkable except as noted in HPI & below Physical Exam Constitutional: WD/WN, vitals as above Eyes: + anicteric sclerae ENMT: Ears: no hearing impairment Neck: trachea midline, no thyromegaly Respiratory: normal respiratory effort, lungs clear to auscultation Cardiovascular: RRR, no murmur, no edema Chest (Breasts): Chest: normal inspection of chest Gastrointestinal (Abdomen): normal bowel sounds, soft, nontender, no hepatosplenomegaly Inspection/Auscultation: + abdomen abnormal to inspection (PEG tube in place) Musculoskeletal: Extremities: extremities normal to inspection; no cyanosis and no clubbing Skin: no rashes, warm and dry Neurologic: moves all extremities and awake; no focal motor deficits Lymphatic: no lymphedema Results & Data Results & Data ([facility]) Vital Signs (Past 12 Hours) Vital Signs Temp Pulse Resp BP Pulse Ox 03/24/21 16:17 37.0 C 75 16 117/69 92 03/24/21 07:41 36.8 C 75 16 125/69 97 Laboratory Results 03/24/21 Range/Units 08:06 Sodium 141 (136-145) mmol/L Potassium 3.7 (3.5-5.1) mmol/L Chloride 107 (98-107) mmol/L Carbon Dioxide 29 (21-32) mmol/L Anion Gap 5.0 (3-11) BUN 14 (7-18) mg/dl Creatinine 1.18 (0.6-1.4) mg/dl Est Cr Clr Drug Dosing 54.1 ml/min Est GFR ( Amer) 73.1 ml/min Est GFR (Non-Af Amer) 63.0 ml/min BUN/Creatinine Ratio 11.8 (10-20) Glucose 116 H (70-99) mg/dl Calcium 8.4 L (8.5-10.1) mg/dl Phosphorus 2.4 L (2.5-4.9) mg/dl Magnesium 1.9 (1.8-2.4) mg/dl Total Bilirubin 0.2 (0.2-1) mg/dl AST 26 (15-37) U/L ALT 42 (12-78) U/L Alkaline Phosphatase 117 (45-117) U/L Total Protein 6.2 L (6.4-8.2) gm/dl Albumin 2.5 L (3.4-5.0) gm/dl Globulin 3.7 (2.5-4.0) gm/dl Albumin/Globulin Ratio 0.7 L (0.9-2) PG Care Time/CCT Total # of Minutes Spent Total Time Spent with Patient: Total time spent is greater than 50% in coordination of care (as documented) at patient's floor/unit and/or counseling patient: Coding Level of Care Code 46262 Subseq Hosp Care Lvl 2 Diagnoses Failure to thrive Throat pain R07.0 Laryngeal cancer C32.9 ARF (acute renal failure) N17.9 Chronic respiratory failure J96.10 Depression F32.9 Pulmonary nodule R91.1 Hypophosphatemia E83.39 DVT prophylaxis Z29.9 Discharge planning issues Z02.9
[2021-03-24] MEDS ORDERED: MoRPHine SULFATE 5 MG/0.25 ML UDP GT SCH (20:00)
[2021-03-24] MEDS: MoRPHine SULFATE 5 MG/0.25 ML UDP GT SCH (20:07)
[2021-03-24] MEDS: ANUSOL SUPP 1 EA PR SCH (20:08)
[2021-03-24] MEDS: QUEtiapine FUMARATE 300 MG TABLET PO SCH (20:09)
[2021-03-24] MEDS: MIRTAZAPINE SOLTAB 15 MG PO SCH (20:09)
[2021-03-24] MEDS: LORazepam 1 MG/2 ML VIAL IV PRN (20:10)
[2021-03-25] MEDS: MoRPHine SULFATE 10 MG/0.5 ML UDP GT SCH ×4 (00:09→11:42)
[2021-03-25] MEDS: TUBE FEEDING WATER FLUSH GT SCH ×4 (00:10→11:43)
[2021-03-25] MEDS: MoRPHine SULFATE 5 MG/0.25 ML UDP GT SCH ×4 (00:10→11:42)
[2021-03-25] MEDS: GABAPENTIN 300 MG CAP PO SCH (09:00)
[2021-03-25] MEDS: PROSOURCE NO CARB 30 ML/PKT GT SCH (09:00)
[2021-03-25] MEDS: ONDANSETRON ORAL SOLN 0.8 MG/1 ML PO SCH (09:01)
[2021-03-25] MEDS: SERTRALINE HCL 100 MG TABLET PEG SCH (09:01)
[2021-03-25] MEDS: SENNOSIDES 8.8 MG/5 ML UDC PEG SCH ×2 (09:01→09:37)
[2021-03-25] MEDS: DOCUSATE SODIUM SYRUP 100 MG/10 ML UDC PEG SCH ×2 (09:01→09:37)
[2021-03-25] MEDS: HEPARIN SOD 5,000 UNIT/0.5 ML VIAL SQ SCH (09:02)
[2021-03-25] MEDS: CYANOCOBALAMIN 500 MCG TABLET (VITAMIN B-12) PEG SCH (09:02)
[2021-03-25] MEDS: CIPRO 0.3%/DEXAMETHASONE 0.1% OTIC SUSP 7.5ML OTR SCH ×2 (09:02→09:37)
[2021-03-25 09:07] LABS: Basophils # (auto) 0.01 K/uL (0-0.2); Basophils % (auto) 0.2 %; Eosinophils # (auto) 0.44 K/uL (0-0.5); Eosinophils % (auto) 7.8 %; Hematocrit (blood only) 36.6 % (42-52); Hemoglobin 11.7 g/dL (14.0-18.0); Immature Granulocytes # (auto) 0.02 K/uL (0.00-0.02); Immature Granulocytes % (auto) 0.4 %; Lymphocytes # (auto) 0.85 K/uL (1.2-3.4); Lymphocytes % (auto) 15.2 %; Mean Corpuscular Hemoglobin 26.8 pg (25-34); Mean Corpuscular Volume 83.8 fL (80-100); Mean Platelet Volume 9.3 fL (7.4-10.4); Monocytes # (auto) 0.65 K/uL (0.11-0.59); Monocytes % (auto) 11.6 %; Neutrophils # (auto) 3.64 K/uL (1.4-6.5); Neutrophils % (auto) 64.8 %; Platelet Count 192 K/uL (130-400); RDW Coefficient of Variation 14.8 % (11.5-14.5); RDW Standard Deviation 45.8 fL (36.4-46.3); Red Blood Count 4.37 M/uL (4.7-6.1); White Blood Count 5.61 K/uL (4.8-10.8)
[2021-03-25] MEDS: FIBERSOURCE HN 1.2 CAL 1000 ML BAG GT SCH (09:14)
[2021-03-25] MEDS ORDERED: GABAPENTIN 250 MG/5 ML 470 ML BTL PEG SCH (09:30)
[2021-03-25 09:37] LABS: Albumin Level 2.4 gm/dl (3.4-5.0); BUN Creatinine Ratio 14.7 (10-20); Calcium 8.5 mg/dl (8.5-10.1); Est GFR (African American) 74.6 ml/min; Est GFR (Non-African American) 64.3 ml/min; Potassium 3.9 mmol/L (3.5-5.1)
[2021-03-25 09:41] LABS: Albumin Globulin Ratio 0.6 (0.9-2); Bilirubin,Total 0.2 mg/dl (0.2-1); Globulin 3.7 gm/dl (2.5-4.0); Phosphorus 3.1 mg/dl (2.5-4.9); Total Protein 6.1 gm/dl (6.4-8.2)
--- NOTE | 2021-03-25 11:01 | Discharge Summary ---
Date of Service March 25, 2021 Admission HPI Per Admitting Provider Rogers Quarles is a 70-year-old male with past medical history significant for laryngeal cancer, laryngectomy, and tracheostomy in place without instrumentation/kit; who presents for concern of 2-month recurrence of inability to tolerate oral intake with additional 10 to 15 pound weight loss over this time. Has been trying to take in mostly liquids that would be able to be absorbed in his mouth and was crushing his medications in order to continue to get pain relief. Continues to have pain of his upper airway/neck which ultimately is what prompted him to come back in. Understands that he has recurrence of his laryngeal cancer at this point time. Is nonverbal at baseline utilizes dry erase marker and board in order to communicate needs and/or wants. Principal Diagnosis Failure to thrive, Laryngeal cancer, PEG tube placement Discharge Exam Constitutional WD/WN, vitals as above Eyes + anicteric sclerae ENMT Ears: no hearing impairment Neck trachea midline, no thyromegaly Respiratory normal respiratory effort, lungs clear to auscultation Cardiovascular RRR, no murmur, no edema Chest (Breasts) Chest: normal inspection of chest Gastrointestinal (Abdomen) normal bowel sounds, soft, nontender, no hepatosplenomegaly Inspection/Auscultation: + abdomen abnormal to inspection (PEG tube in place) Musculoskeletal Extremities: extremities normal to inspection; no cyanosis and no clubbing Skin no rashes, warm and dry Neurologic moves all extremities and awake; no focal motor deficits Psychiatric Orientation: alert and cooperative Lymphatic no lymphedema Discharge Data Allergies Allergy/AdvReac Type Severity Reaction Status Date / Time Influenza Virus Vaccines Allergy Severe "almost Verified 03/18/21 15:18 killed me" Consultations 03/17/21 17:34 ED Decision to Admit Stat 03/17/21 22:27 Consult Gastroenterology Routine 03/23/21 14:18 Consult Health Information Management Routine Procedures Performed Operation Date: 03/18/21 16:45 Actual Procedures p EGD Gastric Tube Placement - Flavio Khan MD Ordered Studies 03/18/21 15:48 CT soft tissue neck wo con Routine Chest X-Ray 03/17/21 17:03 XR chest 1V portable HISTORY: 70 years-old Male pre op preoperative exam. COMPARISON: Chest CT 05/15/2019, chest radiograph 05/24/2016 TECHNIQUE: Portable upright AP view of the chest FINDINGS: Limited exam secondary to obscuration of the lung apices secondary to the patient's chin. Cardiac silhouette is enlarged. Emphysema with chronic interstitial coarsening. Linear left lung base opacities suggestive of atelectasis/scarring. Right greater than left bibasilar opacities. 6 no new nodular density of the right upper lung. Degenerative changes of the shoulders and spine with right shoulder rotator cuff calcific tendinosis. IMPRESSION: 1. Emphysema with chronic interstitial coarsening. 2. Right greater than left bibasilar opacities suggestive of atelectasis versus pneumonitis. 3. Possible 6 mm pulmonary nodule of the right upper lung. 4. Cardiomegaly. ACT 112: Negative or not required by law. The above report was generated using voice recognition software. It may contain grammatical, syntax or spelling errors. Electronically signed by: Johny Bell M.D. 03/17/2021 5:[address] 03/18/21 15:48 CT soft tissue neck wo con HISTORY: 70 years-old Male r/o neck mass, dysphagia, ? recurrent cancer acute dysphasia and a patient with history of prior laryngectomy and tracheostomy COMPARISON: CT soft tissue neck 02/07/2017, 02/09/2017, PET CT 07/19/2017. TECHNIQUE: Multiple axial CT images of the soft tissues of the neck were obtained without the use of IV contrast. A dose lowering technique was used consistent with the principals of ALARA. FINDINGS: Limited exam without the use of IV contrast. The imaged intracranial structures demonstrate no acute abnormality. Unremarkable orbits. Patent nasopharynx. P ostoperative changes redemonstrated compatible with prior laryngectomy with probable tracheoesophageal prosthesis and tracheostomy cannula. Asymmetric fullness within the base of the tongue/lingual tonsil distribution on the right measuring 1.3 cm is similar to comparison. Progressive soft tissue thickening measuring 2.3 x 1.6 cm is noted along the left anterolateral aspect of the airway on image 276 series 3 superior to the tracheostomy cannula which is new from comparison. Atrophic heterogeneous thyroid tissue. Right tracheoesophageal recess lymph nodes measure up to 7 mm. A 9 mm left supraclavicular lymph node is present on image 342. No pathologically enlarged lymph nodes are identified. No parapharyngeal or prevertebral fluid collections identified. Calcified plaque of the carotid bulbs. There is wall thickening of the thoracic esophagus which is similar to comparison with air-fluid level and intraluminal debris. Emphysema. No pneumothorax. Mastoid air cells are clear. Mild mucosal thickening of the paranasal sinuses. Degenerative changes of the spine. No suspicious bone lesion. IMPRESSION: 1. Postoperative changes of prior laryngectomy with tracheostomy and possible tracheoesophageal prosthesis. 2. Limited exam without the use of IV contrast. There is a new area of irregular soft tissue thickening along the left anterolateral aspect of the airway superior to the tracheostomy cannula measuring 2.3 x 1.6 cm suspicious for neoplasm. This could be confirmed with a follow-up PET/CT. 3. Asymmetric fullness in the region of the right lingual tonsils is similar to comparison and likely represents asymmetric tonsillar tissue. 4. No pathologically enlarged lymph nodes identified. Mildly prominent right tracheoesophageal recess and left supraclavicular lymph nodes. 5. Mild distention of the esophagus with associated wall thickening and periesophageal inflammatory stranding. ACT 112: Negative or not required by law. The above report was generated using voice recognition software. It may contain grammatical, syntax or spelling errors. Electronically signed by: Johny Bell M.D. 03/18/2021 4:53 PM KUB X-Ray 03/21/21 08:44 GASTROSTOMY TUBE STUDY WITH OPTIRAY CLINICAL HISTORY: extremely early satiety COMPARISON STUDY: CT of the abdomen and pelvis April 12, 2019. TECHNIQUE: Initially, cut file clerk KUB was obtained. 80 cc of Optiray 300 was then injected through the gastrostomy tube and subsequent KUBs were obtained. FINDINGS: [employer] image demonstrates normal bowel gas pattern with gastrostomy tube projecting over the gastric antrum. There was opacification of the stomach following gastrostomy tube injection. No gastric emptying was noted at 15 minutes. No extraluminal contrast was identified. At 1 hour, significant gastric emptying was noted with contrast throughout the small bowel. Residual contrast within the gastric fundus was noted. Caliber of the opacified small bowel is normal. IMPRESSION: 1. Appropriately positioned gastrostomy tube. 2. No evidence for complete gastric outlet obstruction as contrast noted throughout small bowel on the 1 hour image. Possible mild delayed gastric e mptying with no small bowel contrast noted at 15 minutes. ACT 112: Negative or not required by law. Electronically signed by: Milan Kelly M.D. 03/21/2021 10:34 AM Hospital Course (1) Failure to thrive: Related to laryngeal cancer/dysphagia/odynophagia. Now has PEG tube in placeinitially having difficulty titrating tube feeds up due to intolerability. Now he is tolerating well and is at the goal of 65 mL/hr -replaced phos and now normal -Followed labs for any evidence of refeeding-normal labs on day of discahrge- follow as outpt SIERRA resolved and have since discontinued the IV fluids -Continue Prosource 30 mL daily and sterile water/free water flushes Arrangements have been made through [employer]-he will have 6 cans a day of Jevity 1.2+30 mL of Prosource and should use 60 mL of free water flushes before and after each can feed (2) Throat pain: Related to laryngeal cancernow that PEG is in and functionalresumed home meds MS Contin cannot be crushed through GT and has been dcd -started Roxanol and titrate up again to 15 mg po q4h scheduled dose for pain, can take extra 5mg po q2h prn severe breakthrough pain -dcd home prn oxycodone -continue gabapentin 300 mg 3 times daily-capsules can be opened andmix with juice through PEG -changed all other home meds to liquid unless able to be crushed (3) Laryngeal cancer: Unfortunately appears recurrent. Outpatient follow-up needed IRLANDA [facility], and would like to see providers outside of the [place] system. They request a referral to [facility]. We also discussed the unfortunate nature of recurrent head and neck cancers, and discussed that it is very worthwhile for him to gather information and for them to talk and think about options, but that it is also quite reasonable to consider a more palliative/hospice route if proposed treatment plans sound intolerable or unacceptable as it relates to risk/benefit. -With possible pulmonary nodule on x-ray Needs PET/CT scan as an outpatient -request records from [facility], [place] for biopsy results and ENT notes-have not received these yet by time of discharge (4) ARF (acute renal failure): Acute kidney injury with creatinine up to 1.93 and now resolved back to normal with IVF hydration Almost certainly from dehydration. Continue tube feeds and free water flushes (5) Chronic respiratory failure: With hypoxiacontinue trach collar over stoma at nighttimemore at baseline level of oxygen now. (6) Depression: Stable but at risk for worsening as per Continue home medications of sertraline, Seroquel, hydroxyzine as needed, mirtazapine recommend outpt f/u with Psychiatry as he stopped going as per (7) Pulmonary nodule: 6 mm nodule seen in the right upper lobe on chest x-ray Needs PET CT scan as an outpatient for laryngeal/tongue cancer (8) Hypophosphatemia: Replaced with potassium phosphorus and now resolved (9) DVT prophylaxis: Heparin subcu (10) Discharge planning issues: Dispo-dc to home with home health Needs close follow-up with ENT as an outpatient and PET/CT scan Total Time Total Time Spent Total Time Spent (In Minutes): 35 min Total Time Includes: Examination of the Patient, Discharge Planning and Medication Reconciliation Discharge Plan Discharge Items Patient Disposition: Home - Home Health Services Reason For Visit: Failure to thrive, dysphagia Discharge Diagnosis: Failure to thrive, dysphagia, PEG tube placement, throat cancer Condition on Discharge: Fair Activity: As commented below Exercise/Sports: Gradually increase as tolerated Non-emergency contact: Primary Care Provider and Surgeon Call non-emergency contact if: you have any medication questions, your symptoms worsen, your pain is not controlled, your pain is worsening, you have a fever and your temperature is above 101 Follow-up/Referrals: Willa iRchardson MD [Primary Care Provider] - 04/05/21 10:00 am () Kaveh Davis MD [Physician] - 04/12/21 1:30 pm () Diet: Clear liquid Diet Comment: Tube feeds with Jevity 1.2, 6 cans/day +1 packet/day of Prosource Addtl Attending Provider Instructions: You were [facility] to the [facility]. You were having some difficulty with eating food, so this feeding tube will allow you to receive adequate nutrition directly to your stomach. The tube was successfully placed. Because you were having increased difficulty eating food through you mouth we had imaging done to see your throat, especially with your past history of cancer. Imaging did show a new mass and you will follow-up with your Primary Care doctor for care management. Pending Studies at Discharge: No Stand-Alone Forms: My [facility], Opioid Pain Management Medications and DC Order Prescriptions: New morphine concentrate 100 mg/5 mL (20 mg/mL) Solution 15 mg G-tube Q4 30 Days Qty: 120 RF: 0 docusate sodium 60 mg/15 mL Syrup 100 mg PEG BID Qty: 480 RF: 0 sennosides [senna] 8.8 mg/5 mL Syrup 8.8 mg PEG BID Qty: 237 RF: 0 morphine concentrate 100 mg/5 mL (20 mg/mL) Solution 5 mg G-tube .q2 PRN (Reason: breakthrough pain, severe) Qty: 30 RF: 0 Continued phenylephrine HCl 0.25 % suppository 1 supp [place] HS RF: 0 ondansetron HCl 8 mg Tablet 8 mg PO Q12 RF: 0 naloxone 4 mg/actuation [place],Non-Aerosol 4 mg INTRANASAL DAILY PRN (Reason: Opioid Overdose) RF: 0 ciprofloxacin-dexamethasone 0.3-0.1 % Drops,Suspension 4 drp OTR BID RF: 0 Changed quetiapine 300 mg tablet 300 mg feeding tube HS Qty: 0 RF: 0 baclofen 5 mg Tablet 5 mg feeding tube TID PRN (Reason: Muscle Spasm) Qty: 0 RF: 0 cyanocobalamin (vitamin B-12) 500 mcg Tablet 500 mcg feeding tube QAM Qty: 0 RF: 0 gabapentin 300 mg Capsule 300 mg feeding tube TID Qty: 0 RF: 0 melatonin 3 mg Tablet 3 mg feeding tube HS PRN (Reason: Insomnia) Qty: 0 RF: 0 mirtazapine 30 mg Tablet 45 mg feeding tube QPM Qty: 0 RF: 0 sertraline 100 mg Tablet 200 mg feeding tube QAM Qty: 0 RF: 0 famotidine 40 mg Tablet 20 mg feeding tube BID PRN (Reason: Unknown) Qty: 0 RF: 0 hydroxyzine HCl 10 mg Tablet 10 mg feeding tube BID PRN (Reason: Anxiety) Qty: 0 RF: 0 Discontinued sennosides 8.6 mg Tablet 8.6 mg PO BID RF: 0 oxycodone 15 mg Tablet 15 mg PO .EVERY 3 HOURS PRN (Reason: Pain) RF: 0 morphine [MS Contin] 60 mg Tablet Extended Release 60 mg PO Q6 RF: 0 docusate sodium 100 mg Tablet 100 mg PO BID RF: 0 Discharge Orders: Discharge Order (Routine); Ordered 03/25/21 Ordered By: Yana Childs Admission Data Admit Date/Time: 03/17/21 20:07 Attending Provider: Yana Childs Admit Provider: Quentin Charlton Primary Care Provider: Willa Richardson Other Providers: Dionne Russo ; [facility] ; [facility] ; Fabio Sebastian ; Flavio Khan Other Interventions: Discharge Summary Assessment (RN) Last Done: 03/18/21 12:40 Coding Level of Care Code D/C Day Management >30 mins Diagnoses Failure to thrive Throat pain R07.0 Laryngeal cancer C32.9 ARF (acute renal failure) N17.9 Chronic respiratory failure J96.10 Depression F32.9 Pulmonary nodule R91.1 Hypophosphatemia E83.39 DVT prophylaxis Z29.9 Discharge planning issues Z02.9
== END 2021-03-25 12:41 | disposition home health service (06) | DRG 147 ==
LOC: ED 15:41 → 2W 20:07 → SUATTDRO 20:07 → 2W 21:57